=== PATIENT | male | born 1960 | race Two or more races ===

== ENCOUNTER 2022-02-11 10:12 | Outpatient (REF) | payer OTHER, SELFPAY ==
--- NOTE | ~2022-02-11 | XR_ITS ---
EXAMINATION: XR CHEST CLINICAL INFORMATION: Chest pain during with breathing COMPARISON: None TECHNIQUE: 2 views of the chest were obtained. FINDINGS: The lungs are well-expanded and clear. The heart size and pulmonary vascularity is normal. There is moderate spondylosis dorsal spine. XR/XR chest 2V IMPRESSION: Unremarkable chest examination.
== END 2022-02-11 10:13 | disposition home or self-care (01) ==
LOC: HO.XRAY 10:12
PROVIDERS: PCP Internal Medicine; Visit Provider Nurse Practitioner Family
DX: R07.1 Chest pain on breathing (principal)
CPT/HCPCS: 71046

== ENCOUNTER 2022-06-10 09:56 | Outpatient (REF) | payer OTHER, SELFPAY ==
--- NOTE | ~2022-06-10 | US_ITS ---
EXAMINATION: US VENOUS ULTRASOUND WITH DOPPLER LOWER EXTREMITY, RIGHT CLINICAL INFORMATION: Right leg pain COMPARISON: None available. TECHNIQUE: Ultrasound of the deep veins is performed from the hip to the calf with compression sonography and color and pulse Doppler assessment. Spectral analysis with color-flow imaging is performed. FINDINGS: There is normal venous compression and respiratory variation and augmented flow. The visualized common femoral vein, superficial femoral vein, profunda femoral vein, popliteal vein, and the trifurcation region shows no evidence of deep venous thrombosis. There is no significant popliteal fossa cyst. If the patient's symptoms persist, followup ultrasound in 5 days 7 days might be of value to exclude proximal propagation from a non-visualized calf vein. US/US venous duplex LE RT IMPRESSION: No DVT demonstrated in the right lower extremity.
--- NOTE | ~2022-06-10 | XR_ITS ---
EXAMINATION: XR chest 2V CLINICAL INFORMATION: Reason for Exam ACUTE COUGH COMPARISON: Chest radiograph 02/11/2022 TECHNIQUE: 2 views of the chest FINDINGS: Clear lungs. No pneumothorax or pleural effusion. Normal cardiomediastinal silhouette. XR/XR chest 2V Impression: * Clear lungs.
[2022-06-10 11:16] LABS: Rheumatoid Factor < 13.0 IU/mL (<15.0)
[2022-06-13 21:14] LABS: Lyme Abs Screen <0.90 index
[2022-06-17 11:19] LABS: Anti Nuclear Antibody Screen NEGATIVE (NEGATIVE)
== END 2022-06-10 09:57 | disposition home or self-care (01) ==
LOC: HO.US 09:56
PROVIDERS: Absent Provider Internal Medicine; PCP Internal Medicine; Visit Provider Emergency Medicine
DX: M79.651 Pain in right thigh (principal); R05.1 Acute cough; M25.50 Pain in unspecified joint
CPT/HCPCS: 36415; 71046; 86038; 86431; 86617; 86618; 93971

== ENCOUNTER 2022-09-01 15:34 | Outpatient (REF) | payer OTHER, SELFPAY ==
[2022-09-01 16:08] LABS: MANUAL DIFF FLAG NO
[2022-09-01 16:31] LABS: Basophils Absolute Auto 0.1 X10*3/uL (0.0-0.2); Basophils Percent Auto 0.7 % (0-2); Eosinophils Absolute Auto 0.2 X10*3/uL (0.0-0.4); Eosinophils Percent Auto 1.6 % (0-4); Hematocrit 43.7 % (42.0-52.0); Hemoglobin 14.9 g/dl (14.0-18.0); Imm Gran Abs Auto 0.05 X10*3/uL (0.00-0.03); Imm Gran Pct Auto 0.4 % (0.0-0.4); Lymphocytes Absolute Auto 2.7 X10*3/uL (1.2-4.9); Lymphocytes Percent Auto 23.4 % (20-40); Mean Corpuscular HGB Conc 34.1 g/dl (31.0-36.0); Mean Corpuscular Hemoglobin 30.5 pg (27.0-33.0); Mean Corpuscular Volume 89.5 fL (80.0-98.0); Mean Platelet Volume 10.4 fL (9.4-12.4); Monocytes Absolute Auto 0.9 X10*3/uL (0.1-1.2); Monocytes Percent Auto 7.6 % (2-11); Neutrophils Absolute Auto 7.6 x10*3/uL (2.0-8.3); Neutrophils Percent Auto 66.3 % (45-73); Platelet Count 268 X10*3/uL (160-400); Red Blood Count 4.88 X10*6/uL (4.60-5.80); Red Cell Distribution Width 11.9 % (11.0-16.0); White Blood Count 11.5 X10*3/uL (4.8-10.8)
[2022-09-01 17:07] LABS: Estimated Average Glucose 97 mg/dL
[2022-09-01 17:26] LABS: Alanine Aminotransferase 17 U/L (0-40); Albumin Level 4.2 g/dL (3.5-5.0); Alkaline Phosphatase 71 U/L (39-117); Anion Gap 16 (12-20); Aspartate Amino Transferase 22 U/L (5-37); Bilirubin Direct 0.3 mg/dL (0.0-0.5); Bilirubin Total 1.1 mg/dL (0.0-1.0); Blood Urea Nitrogen 15 mg/dL (9-16); Calcium 9.8 mg/dL (8.4-10.2); Carbon Dioxide 22 mmol/L (22-29); Chloride 104 mmol/L (96-108); Cholesterol 200 mg/dL; Estimated Glomerular Filt Rate > 60; Glucose Random 87 mg/dL (60-115); HDL Cholesterol 44 mg/dL; LDL Cholesterol Calculated 118 mg/dl; Potassium 3.9 mmol/L (3.3-5.1); Sodium 138 mmol/L (135-145); Total Protein 7.7 g/dL (6.5-8.0); Triglycerides 190 mg/dL
== END 2022-09-01 15:35 | disposition home or self-care (01) ==
LOC: HO.HHCL 15:34
PROVIDERS: Visit Provider Internal Medicine
DX: Z00.00 Encounter for general adult medical examination without abnormal findings (principal); Z20.2 Contact with and (suspected) exposure to infections with a predominantly sexual mode of transmission; E78.5 Hyperlipidemia, unspecified
CPT/HCPCS: 36415; 80048; 80061; 80076; 83036; 85025

== ENCOUNTER 2022-12-01 10:43 | Outpatient (REF) | payer OTHER, SELFPAY ==
[2022-12-01 12:07] LABS: Anion Gap 13 (12-20); Blood Urea Nitrogen 14 mg/dL (9-16); Calcium 9.6 mg/dL (8.4-10.2); Carbon Dioxide 25 mmol/L (22-29); Chloride 107 mmol/L (96-108); Estimated Glomerular Filt Rate > 60; Glucose Random 94 mg/dL (60-115); Sodium 141 mmol/L (135-145)
== END 2022-12-01 10:44 | disposition home or self-care (01) ==
LOC: HO.HHCL 10:43
PROVIDERS: Visit Provider Internal Medicine
DX: R22.1 Localized swelling, mass and lump, neck (principal)
CPT/HCPCS: 36415; 80048

== ENCOUNTER 2022-12-09 10:36 | Outpatient (REF) | payer OTHER, SELFPAY ==
--- NOTE | ~2022-12-09 | CT_ITS ---
EXAMINATION: CT SOFT TISSUE NECK WITH CONTRAST CLINICAL INFORMATION: Swelling, mass, lump COMPARISON: None available. TECHNIQUE: Following the administration of 60 mL of Omnipaque 350 intravenous contrast, helical imaging was performed in the axial plane with generation of coronal and sagittal reformatted images. This CT examination was performed using dose optimization techniques as appropriate, variously including the following: *Automated exposure control. *Adjustment of mA and/or kV according to patient size (this includes techniques or standardized protocols for targeted exams where dose is matched to indication/reason for exam; i.e. extremities or head). *Use of iterative reconstruction technique. DLP: 325.43 mGy-cm mGy-cm. FINDINGS: Nasopharynx/Skull Base: The fat planes at the skull base and the soft tissues of the nasopharynx are within normal limits. Prominent polypoid soft tissue in the left maxillary sinus. Additional trace scattered paranasal sinus mucosal thickening. The mastoid air cells are well-aerated. Suprahyoid Neck: Symmetric prominence of the bilateral lingual tonsils filling the vallecula. Suboptimal evaluation of the oral cavity secondary to streak artifact from dental amalgam. Left palatine tonsil with. The parotid and submandibular glands are within normal limits. Infrahyoid Neck: Suboptimal evaluation secondary to closed glottis. No definite exophytic mass/lesion within this constraint. Thyroid: The thyroid is unremarkable without identifiable nodules. Nodes: No significant cervical lymph nodes by CT size criteria. Lung Apices: The partially visualized lungs are clear. Vascular Structures:The vascular structures are normal in appearance. Osseous Structures: Multilevel degenerative changes of the cervical spine. Other Findings: Limited intracranial evaluation is within normal limits. CT/CT soft tissue neck w IV con IMPRESSION: No significant cervical lymphadenopathy or definite soft tissue mass is visualized. Please note that no region of interest is delineated/no clinical documentation is available to specify the location of palpable abnormality. If documentation becomes available, an addendum can be filed. Nonspecific prominence of the bilateral lingual tonsils filling the vallecula. Finding may represent tonsillar hypertrophy but is indeterminate. Direct visualization is recommended to exclude an underlying mass/lesion
[2022-12-09] MEDS: iohexoL 350 MG/ML 100 ML INFUS..BTL IV (11:57)
== END 2022-12-09 10:37 | disposition home or self-care (01) ==
LOC: HO.CT 10:36
PROVIDERS: PCP Internal Medicine; Visit Provider Internal Medicine
DX: R22.1 Localized swelling, mass and lump, neck (principal)
CPT/HCPCS: 70491; Q9967

== ENCOUNTER 2023-01-13 14:08 | Outpatient (REF) | payer OTHER, SELFPAY ==
[2023-01-13 15:34] LABS: Influenza A PCR NEGATIVE (Negative); Influenza B PCR NEGATIVE (Negative); Resp Syncy Virus RNA Qual PCR POSITIVE (Negative); SARS COV2 PCR INHOUSE NEGATIVE (Negative)
== END 2023-01-13 14:09 | disposition home or self-care (01) ==
LOC: HO.HHCLNP 14:08
PROVIDERS: Visit Provider Family Medicine
DX: Z11.52 Encounter for screening for COVID-19 (principal); J06.9 Acute upper respiratory infection, unspecified
CPT/HCPCS: 0241U

== ENCOUNTER 2023-05-01 10:21 | Outpatient (REF) | payer OTHER, MEDICAID, SELFPAY ==
--- NOTE | ~2023-05-01 | XR_ITS ---
EXAMINATION: XR SHOULDER, LEFT CLINICAL INFORMATION: Left shoulder pain. COMPARISON: None available. TECHNIQUE: AP external rotation, Grashey, scapular Y, and axillary views of the left shoulder. FINDINGS: No acute fracture or dislocation. Moderate acromioclavicular joint space narrowing with marginal osteophytes. No glenohumeral joint space narrowing. Tiny inferior glenohumeral marginal osteophytes. No osseous erosion. No abnormal soft tissue calcification. XR/XR shoulder LT min 2V IMPRESSION: Moderate acromioclavicular and minimal glenohumeral osteoarthritis.
== END 2023-05-01 10:22 | disposition home or self-care (01) ==
LOC: HO.HHCX 10:21
PROVIDERS: Visit Provider Emergency Medicine
DX: M25.512 Pain in left shoulder (principal)
CPT/HCPCS: 73030

== ENCOUNTER 2024-11-18 09:38 | Outpatient (REF) | payer OTHER, MEDICAID, SELFPAY ==
--- NOTE | ~2024-11-18 | XR_ITS ---
EXAMINATION: XR FOOT 3 OR MORE VIEWS LEFT HISTORY: left heel pain COMPARISON: There are no prior studies available for comparison. FINDINGS: Three views of the left foot are submitted. Osseous mineralization is normal. There is no fracture or dislocation. The joint spaces are preserved. The soft tissues are unremarkable. XR/XR foot LT min 3V IMPRESSION: Unremarkable examination of the left foot. Electronically signed by: Kamron Burt MD 11/19/2024 07:10 AM EDT
--- OUTSIDE RECORDS SUMMARY | 2024-11-18 09:00 | XMS_ITS | Encounter Summary ---
Author Organization [employer] Address [address] [place] [address] [address], [place] [address] Care Team Providers Care Agricultural Commodities Inspector Name Role Phone Love Brady MD Primary Care Provide r Reason for Referral * Consultation (Routine) - Pending Review Specialty Diagnoses / Procedures Referred By Contac t Referred To Contact Podiatry Diagnoses Achilles tendinosis of left ankle Pain of left heel Bridgette Winston MD [address] [place] [address] Phone: tel: fax: Referral ID Status Reason Start Date Expiration Date Visits Requested Visits Authorized [id number] Pending Review Specialty Services Required 11/18/2025 1 1 * Imaging (Routine) - Authorized Specialty Diagnoses / Procedures Referred By Contac t Referred To Contact Cardiology Diagnoses Leg pain, posterior, left Procedures GAYLE DUP EXT LOW UNILAT (DVT) LEFT Bridgette Winston MD [address] [place] [address] Phone: tel: fax: [address] Phone: tel: fax: Referral ID Status Reason Start Date Expiration Date Visits Requested Visits Authorized [id number] Authorized Perform Procedure 11/18/2025 1 1 Reason for Visit * Reason Comments Leg Pain CO left leg pain. Pt states it feels like his muscle is stretching or pulling like a rubber band Encounter Details Date Type Department Care Team (Late st Contact Info) Description 11/18/2024 9:00 AM EDT Office Visit [facility] [address] [place] [address] Bridgette Winston MD [address] [place] [address] Achilles tendinosis of left ankle (Primary Dx); Pain of left heel; Leg pain, posterior, left Social History Tobacco Use Types Packs/Day Years Used Date Smoking Tobacco: Former Cigarettes Passive Smoke Exposure: Past Smokeless Tobacco: Never Alcohol Use Standard Drinks/Week Comments Not Currently 0 (1 standard drink = 0.6 oz pur e alcohol) Alcohol Answer Date Recorded Frequency of Alcohol Consumption Not on file 08/30/2023 Average Number of Drinks Not on file 024 Frequency of Binge Drinking Not on file 08/07 Score 0 08/30/2023 Depression Answer Date Recorded Patient Health Questionnaire-9 Score 8 08/28/2024 Patient Health Questionnaire-9 Score 8 08/28/2024 Last PHQ-9: Questionnaire Data Not on file 0 08/28/2024 Housing Stability Answer Date Recorded What is your housing situation today? I have paola leiva 03/26/[address] you li ve. Do you have problems with any of the following? None of the above 03/26/2024 Food Insecurity Answer Date Recorded Within the past 12 months, y ou worried that your food would run out before you got money to buy more: Never True 03/26/2024 Within the past 12 months,th e food you bought just didn't last and you didn't have enough money to get more: Never True Transportation Answer Date Recorded In the past 12 months, has l ack of transportation kept you from medical appts, meetings, work or from getting things needed for daily living? No 03/26/2024 Utilities Answer Date Recorded In the past 12 months, has t he electric, gas, oil or water company threatened to shut off services in your home? No 03/26/2024 Depression Answer Date Recorded Patient Health Questionnaire-2 Score 1 08/28/2024 Internet Access Answer Date Recorded Internet Access Q1 Yes 03/26/2024 Internet Access Q2 Not on file 03/26/2024 Sex and Gender Information Value Date Recorded Sex Assigned at Male 12/06/2021 10:40 AM EDT Legal Sex Male 10:40 AM EDT Gender Identity Male 12/06/2021 10:40 AM EDT Sexual Orientation Straight 12/06/2021 10 :40 AM EDT documented as of this encounter Last Filed Vital Signs Vital Sign Reading Time Taken Comments Blood Pressure 126/82 11/18/2024 9:14 AM EDT Pulse 70 11/18/2024 9:14 AM EDT Temperature 36.6 C (97.8 F) 11/18/2024 9:14 AM EDT Respiratory Rate 16 11/18/2024 9:14 AM EDT Oxygen Saturation - - Inhaled Oxygen Concentration - - Weight 88.5 kg (195 lb 3.2 oz) 11/18/2024 9:14 A M EDT Height 170.2 cm (5' 7 ) 11/18/2024 9:14 AM EDT Body Mass Index 30.57 11/18/2024 9:14 AM EDT documented in this encounter Progress Notes * Bridgette Winston MD - 11/18/2024 9:00 AM EDT SUBJECTIVE: Patricio Urias is a 64 y.o. year old male who presents for [facility]/left foot pain. Denies recent illness, injury, or hospitalization. w Acute Concerns: Patient here with his complaining of persistent left heel and foot pain radiated up to the left leg for 2 weeks. Has been trying OTC Tylenol and heat packs with no improvement of the symptoms. He does not have significant edema, no history of recent trauma or accidents. He has history of recurrent PE in the past and and has been on Eliquis, he denies chest pain or shortness of breath. Social History Social History Narrative Not on file Problem List[1] Family History[2] Review of Systems Constitutional: Negative for fever. HENT: Negative for congestion, ear pain, rhinorrhea and sore throat. Eyes: Negative for pain and discharge. Respiratory: Negative for cough and shortness of breath. Cardiovascular: Negative for chest pain. Gastrointestinal: Negative for abdominal pain, constipation, diarrhea and nausea. Endocrine: Negative for polydipsia. Genitourinary: Negative for dysuria and frequency. Musculoskeletal: Positive for arthralgias and gait problem. Negative for back pain and neck pain. Neurological: Negative for dizziness, numbness and headaches. Psychiatric/Behavioral: Negative for agitation. OBJECTIVE: Vitals: 11/18/24 0914 BP: 126/82 Pulse: 70 Resp: 16 Temp: 97.8 ??F (36.6 ??C) Physical Exam Constitutional: Appearance: Normal appearance. HENT: Right Ear: Tympanic membrane and ear canal normal. Left Ear: Tympanic membrane and ear canal normal. Mouth/Throat: Mouth: Mucous membranes are moist. Pharynx: No oropharyngeal exudate or posterior oropharyngeal erythema. Eyes: Pupils: Pupils are equal, round, and reactive to light. Cardiovascular: Rate and Rhythm: Normal rate and regular rhythm. Pulses: Dorsalis pedis pulses are 2+ on the right side and 2+ on the left side. Posterior tibial pulses are 2+ on the right side and 2+ on the left side. Heart sounds: No murmur heard. Pulmonary: Breath sounds: Normal breath sounds. No wheezing. Abdominal: General: Bowel sounds are normal. Palpations: Abdomen is soft. Tenderness: There is no abdominal tenderness. Musculoskeletal: General: No tenderness. Normal range of motion. Cervical back: Normal range of motion. No tenderness. Right foot: No deformity. Left foot: No deformity. Feet: Right foot: Protective Sensation: 7 sites tested. 7 sites sensed. Skin integrity: No ulcer or fissure. Toenail Condition: Right toenails are normal. Left foot: Protective Sensation: 7 sites tested. 7 sites sensed. Skin integrity: No ulcer or fissure. Toenail Condition: Left toenails are normal. Comments: Tenderness palpation to left heel and calcaneal area. Painful extension of left plantar area. Tenderness to palpation around left Achilles tendon. Positive Homans sign Skin: General: Skin is warm. Neurological: General: No focal deficit present. Mental Status: He is alert and oriented to person, place, and time. Psychiatric: Mood and Affect: Mood normal. Problem List Items Addressed This Visit Achilles tendinosis of left ankle - Primary Rule out calcaneal spur, order x-rays. Advised regarding apply heat to affected area and use plantar pads to affected area for ambulation. I will order a surgical shoe to wear at home, refer to master electrician Relevant Orders XR Foot 3+ Views Left Referral to Podiatry Other Visit Diagnoses Pain of left heel Relevant Orders XR Foot 3+ Views Left Referral to Podiatry Leg pain, posterior, left ?Achilles tendinosis, however given history of unprovoked thrombotic event and positive Homans' sign, order a DVT US to rule out LLE DVT Relevant Orders GAYLE DUP EXT LOW UNILAT (DVT) LEFT Follow Up: Medications Ordered Prior to Encounter[3] [1] Patient Active Problem List Diagnosis Acute pulmonary embolism without acute cor pulmonale (CMS/HCC) ([facility]) Chronic low back pain Dyslipidemia Esophageal reflux Essential hypertension Left lumbar radiculopathy Mixed anxiety and depressive 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 Seasonal allergies Recurrent pulmonary embolism (CMS/HCC) ([facility]) Bronchitis Encounter for preventive health examination Colon cancer screening Neck pain Sialoadenitis, unspecified Localized swelling, mass and lump, neck Chronic left shoulder pain Anxiety Otitis of both ears Wheezing JABARI (obstructive sleep apnea) Coccygeal pain Achilles tendinosis of left ankle [2] No family history on file. [3] Current Outpatient Medications on File Prior to Visit Medication Sig Dispense Refill albuterol 108 (90 Base) MCG/ACT inhaler Inhale 2 puffs every 6 (six) hours if needed for wheezing or shortness of breath. 18 g 2 apixaban (Eliquis) 5 MG tablet Take 1 tablet (5 mg) by mouth 2 times daily. 60 tablet 3 Aspirin Low Dose 81 MG chewable tablet CHEW 1 TABLET BY MOUTH EVERY DAY 90 tablet 1 atorvastatin (Lipitor) 80 MG tablet TAKE 1 TABLET BY MOUTH EVERY DAY 90 tablet 1 baclofen (Lioresal) 10 MG tablet Take 1 tablet (10 mg) by mouth 3 times daily. 90 tablet 0 Blood Pressure kit 1 kit Once per day. 1 kit 0 fluticasone (Flonase) 50 MCG/ACT nasal spray Administer 2 sprays into each nostril if needed each day for rhinitis. Shake gently. Before first use, prime pump. After use, clean tip and replace cap. 16 g 2 hydroCHLOROthiazide 12.5 MG tablet TAKE 1 TABLET BY MOUTH EVERY DAY 90 tablet 1 hydrOXYzine pamoate (Vistaril) 25 MG capsule Take 1 capsule (25 mg) by mouth every 6 (six) hours ifneeded for anxiety. 30 capsule 0 loratadine (Claritin) 10 MG tablet TAKE 1 TABLET BY MOUTH EVERY DAY IN THE MORNING 90 tablet 1 meloxicam (Mobic) 15 MG tablet Take 1 tablet (15 mg) by mouth in the morning. 30 tablet 0 Multiple Vitamins-Minerals (MULTIVITAMIN ADULT EXTRA C PO) Daily, 0 Refills, Maintenance, 01/04/18 9:31:20 EST valsartan (Diovan) 160 MG tablet TAKE 1 TABLET BY MOUTH EVERY DAY IN THE MORNING 90 tablet 1 No current facility-administered medications on file prior to visit. documented in this encounter Miscellaneous Notes * Assessment & Plan Note - Bridgette Winston MD - 11/18/2024 9:38 AM EDT Associated Problem(s): Achilles tendinosis of left ankle Rule out calcaneal spur, order x-rays. Advised regarding apply heat to affected area and use plantar pads to affected area for ambulation. I will order a surgical shoe to wear at home, refer to master electrician documented in this encounter Plan of Treatment Upcoming Encounters Date Type Department Care Team (Late st Contact Info) Description 11/28/2024 9:00 AM EDT Office Visit [facility] [address] [place] [address] Love Brady MD [address] [place] [address] Scheduled Orders Name Type Priority Associated Diagnoses Orde r Schedule XR Foot 3+ Views Left Imaging Routine Pain of left heel Achilles tendinosis of left ankle Expected: 11/18/2024, Expires: 11/18/2025 Scheduled Referrals Name Type Priority Associated Diagnoses Orde r Schedule Referral to Podiatry Outpatient Referral Routine Achilles tendinosis of left ankle Pain of left heel Expected: 11/18/2024 (Approximate), Expires: 11/18/2025 documented as of this encounter Visit Diagnoses Diagnosis Achilles tendinosis of left ankle- Primary Pain of left heel Leg pain, posterior, left documented in this encounter Additional Health Concerns Assessment Noted Time PHQ-9 Depression Total Score: 8 08/29/19 25 9:15 AM EDT documented as of this encounter Care Teams Agricultural Commodities Inspector Relationship Specialty Start Date End Date Love Brady MD [address] [place] [address] PCP - General Family Medicine 06/30/21 documented as of this encounter
--- OUTSIDE RECORDS SUMMARY | 2024-11-18 09:46 | XMS_ITS | Encounter Summary ---
Author Organization [employer] Address [address] [place] [address] Care Team Providers Care Legal Internship Name Role Phone Love Brady MD Primary Care Provide r Reason for Visit * Reason Comments Med Refill Encounter Details Date Type Department Care Team (Late Contact Info) Description 10/20/2022 Refill [facility] [address] [place], [place] [phone] Gabrielle Farias FNP [address] [place] [address] Muscle spasm Social History Tobacco Use Types Packs/Day Years Used Date Smoking Tobacco: Former Cigarettes Smokeless Tobacco: Never Alcohol Use Standard Drinks/Week Comments Not Currently 0 (1 standard drink = 0.6 oz pur e alcohol) Depression Answer Date Recorded Patient Health Questionnaire-9 Score 3 02/11/2022 Depression Answer Date Recorded Patient Health Questionnaire-2 Score 0 02/11/2022 Sex and Gender Information Value Date Recorded Sex Assigned at Male 12/06/2021 10:40 AM EDT Legal Sex Male 10:40 AM EDT Gender Identity Male 12/06/2021 10:40 AM EDT Sexual Orientation Straight 12/06/2021 10 :40 AM EDT documented as of this encounter Plan of Treatment Upcoming Encounters Date Type Department Care Team (Late Contact Info) Description 11/28/2024 9:00 AM EDT Office Visit [facility] MED[facility]INE [address] [place], [place] [phone] Love Brady MD [address] [place], [place] [phone] documented as of this encounter Visit Diagnoses Diagnosis Muscle spasm Spasm of muscle documented in this encounter Additional Health Concerns Assessment Noted Time PHQ-9 Depression Total Score: 3 02/11/19 23 9:07 AM EST documented as of this encounter Care Teams Legal Internship Relationship Specialty Start Date End Date Love Brady MD [address] [place] [address] PCP - General Family Medicine 06/30/21 documented as of this encounter
--- OUTSIDE RECORDS SUMMARY | 2024-11-18 09:46 | XMS_ITS | Encounter Summary ---
Author Organization [employer] Address [address] [facility] 7t [place] [address] Care Team Providers Care Machine Shop Specialist Name Role Phone Love Brady MD Primary Care Provide r Reason for Visit * Reason Comments Med Change Request Encounter Details Date Type Department Care Team ([facility] st Contact Info) Description 05/23/2023 Refill [facility] [address] [place] [address] Jennifer Smart FNP Muscle spasm Social History Tobacco Use Types Packs/Day Years Used Date Smoking Tobacco: Former Cigarettes Passive Smoke Exposure: Current Smokeless Tobacco: Never Alcohol Use Standard Drinks/Week Comments Not Currently 0 (1 standard drink = 0.6 oz pur e alcohol) Depression Answer Date Recorded Patient Health Questionnaire-9 Score 0 03/01/2023 Patient Health Questionnaire-9 Score 0 03/01/2023 Last PHQ-9: Questionnaire Data Not on file 0 03/01/2023 Housing Stability Answer Date Recorded What is your housing situation today? I have paola leiva 03/01/[address] you li ve. Do you have problems with any of the following? None of the above 03/01/2023 Food Insecurity Answer Date Recorded Within the past 12 months, y ou worried that your food would run out before you got money to buy more: Never True 03/01/2023 Within the past 12 months,th e food you bought just didn't last and you didn't have enough money to get more: Never True Transportation Answer Date Recorded In the past 12 months, has l ack of transportation kept you from medical appts, meetings, work or from getting things needed for daily living? No 03/01/2023 Utilities Answer Date Recorded In the past 12 months, has t he electric, gas, oil or water company threatened to shut off services in your home? No 03/01/2023 Depression Answer Date Recorded Patient Health Questionnaire-2 Score 0 03/01/2023 Sex and Gender Information Value Date Recorded [...] 9:00 AM EDT Office Visit [facility] [address] [place] [address] Love Brady MD [address] [place] [address] documented as of this encounter Visit Diagnoses Diagnosis Muscle spasm Spasm of muscle documented in this encounter Additional Health Concerns Assessment Noted Time PHQ-9 Depression Total Score: 0 03/01/19 24 3:19 PM EST documented as of this encounter Care Teams Machine Shop Specialist Relationship Specialty Start Date End Date Love Brady MD [address] [place] [phone] PCP - General Family Medicine 06/30/21 documented as of this encounter
--- OUTSIDE RECORDS SUMMARY | 2024-11-18 09:46 | XMS_ITS | Encounter Summary ---
Author Organization [employer] Address [address] [facility] [address] [place] [address] Care Team Providers Care Grant Writer Name Role Phone Love Brady MD Primary Care Provide r Encounter Details Date Type Department Care Team (Late st Contact Info) Description 06/09/2023 Orders Only [facility] MEDICINE [address] [place], [place] [phone] Love Brady MD [address] [place] [address] Social History Tobacco Use Types Packs/Day Years [...] Office Visit [facility] MED[facility]INE [address] [place] [address] Love Brady MD [address] [place] [address] documented as of this encounter Visit Diagnoses Not on filedocumented in this encounter Additional Health Concerns Assessment Noted Time PHQ-9 Depression Total Score: 0 03/01/19 24 3:19 PM EST documented as of this encounter Care Teams Grant Writer Relationship Specialty Start Date End Date Love Brady MD [address] [place] [phone] PCP - General Family Medicine 06/30/21 documented as of this encounter
--- OUTSIDE RECORDS SUMMARY | 2024-11-18 09:46 | XMS_ITS | Clinical Summary ---
Author Organization [facility] Address [address] [place] [address] Phone Care Team Providers Care Gas Plant Repairer Name Role Phone Love Brady MD Primary Care Provide r Allergies Active Allergy Reactions Criticality Noted Date Comments Morphine Hives 03/12/2024 Medications apixaban (ELIQUIS) 5 mg tablet Take 1 tablet (5 mg total) by mouth 2 (two) times a day. Active Surgical History Surgery Date Site/Laterality Comments BACK SURGERY 1990 PROCEDURE: HISTORICAL BACK SURGERY; COMMENT: spinal fusion dr saini SHOULDER SURGERY Right PROCEDURE: HISTORICAL SHOULDER SURGERY; COMMENT: Dr. boateng COLONOSCOPY 2014 PROCEDURE: NE COLONOSCOPY STOMA W/RMVL IZAIAH POLYP/OTH LES SNARE; COMMENT: Colon polyps x 3 , diverticulosis COLONOSCOPY 10/31/2017 PROCEDURE: NE COLONOSCOPY STOMA W/RMVL IZAIAH POLYP/OTH LES SNARE; COMMENT: small adenoma; repeat in 5 yrs under propofol LIPOMA RESECTION 04/26/2021 Left PROCEDURE: SKIN TISSUE EXCISION(LIPOMA); COMMENT: left mid back - Dr. Babar Jackson LIPOMA RESECTION 06/01/2018 Left PROCEDURE: SKIN TISSUE EXCISION(LIPOMA); COMMENT: left flank - Dr. Babar Jackson Medical History Medical History Date Comments Esophageal reflux 10/03/2005 DX:Esophageal reflux Hematuria 07/04/2007 DX:Hematuria; CO MMENT: Evaluatedby dr bryan proctor Personal history of colonic polyps 03/05/2014 DX:Personal history of colonic polyps HTN (hypertension), benign 05/28/2020 DX:HT N (hypertension), benign DVT (deep venous thrombosis) ([facility] V24, [facility] V28) Family History Medical History Relation Name Comments No Known Problems Aunt Other: step brother Brother 1 Other: step brother Brother 2 Coronary artery disease Father No Known Problems Maternal Grandfather No Known Problems Maternal Grandmother Coronary artery disease Mother 3 ve ssel disease Other: pulmonary embo Mother Thyroid disease Mother No Known Problems Other No Known Problems Paternal Grandfather No Known Problems Paternal Grandmother No Known Problems Sister 1 No Known Problems Sister 2 Other: step sister Sister 3 Other: step sister Sister 4 No Known Problems Uncle Blindness Neg Hx Cataracts Neg Hx Glaucoma Neg Hx Macular degeneration Neg Hx Strabismus Neg Hx Relation Name Status Comments Aunt Brother 1 Alive Brother 2 Alive Father (Age 65) heart dise ase Maternal Grandfather Maternal Grandmother Mother Alive Other Paternal Grandfather Paternal Grandmother Sister 1 Alive Sister 2 Alive Sister 3 Alive Sister 4 Alive Uncle Social History Tobacco Use Types Packs/Day Years Used Date Smoking Tobacco: Former Cigarettes 1 3 0 02/07/1976 - 02/06/1979 Smokeless Tobacco: Former Alcohol Use Standard Drinks/Week Comments Yes 0 (1 standard drink = 0.6 oz pur e alcohol) Sex and Gender Information Value Date Recorded Sex Assigned at Male 03/12/2024 8:43 AM EST Legal Sex Male 10:10 PM EST Gender Identity Male 03/12/2024 8:43 AM EST Sexual Orientation Straight 03/12/2024 8: 43 AM EST Obstetrics History Last Filed Vital Signs Vital Sign Reading Time Taken Comments Blood Pressure 141/76 03/12/2024 1:50 PM EST Pulse 70 03/12/2024 1:50 PM EST Temperature 36.6 C (97.9 F) 03/12/2024 7:34 AM EST Respiratory Rate 16 03/12/2024 1:50 PM EST Oxygen Saturation 99% 03/12/2024 1:50 PM EST Inhaled Oxygen Concentration - - Weight 92.4 kg (203 lb 12.8 oz) 05/10/2021 8:50 AM EDT Height 170.2 cm (5' 7 ) 05/10/2021 8:50 AM EDT Body Mass Index 31.92 05/10/2021 8:50 AM EDT Plan of Treatment Health Maintenance Due Date Last Done Comments Colorectal Cancer Screening: Colonoscopy 1962 Pneumococcal Vaccine: 50+ Years (2 of 2 - PCV) 2012 03/12/2008 Hepatitis C Screening 01/15/2022 Medicare Annual Wellness Visit 01/15/2022 Social Influencers of Health Screening 01/15/2022 Depression Screening 02/07/2024 COVID-19 Vaccine ( - season) 2024 02/12/2022, 01/03/2021, 05/15/2020 Influenza Vaccine (#1) 2024 , 12/26/2022, 10/25/2021, Additional history exists Hypertension/CHF/CAD Annual BMP Blood Test 03/12/2025 03/12/2024 Cholesterol Screening (Lipid Panel) 09/02/2027 09/01/2022 DTaP,Tdap,and Td Vaccines (3 - Td or Tdap) 03/15/2029 03/15/2019, 09/05/2008 RSV Immunization Adult Patients (1 - 1-dose 75+ series) 2037 Zoster Vaccines Completed 05/14/2021, 12/05/2020 HIV Screening Completed 06/30/2021 HIB Vaccines Aged Out No longer eligi ble based on patient's age to complete this topic HPV Vaccines Aged Out No longer eligi ble based on patient's age to complete this topic Hepatitis A Vaccines Aged Out No long er eligible based on patient's age to complete this topic Hepatitis B Vaccines Aged Out No long er eligible based on patient's age to complete this topic IPV Vaccines Aged Out No longer eligi ble based on patient's age to complete this topic MMR Vaccines Aged Out No longer eligi ble based on patient's age to complete this topic Meningococcal ACWY Vaccine Aged Out N o longer eligible based on patient's age to complete this topic Meningococcal B Vaccine Aged Out No l onger eligible based on patient's age to complete this topic RSV Immunization Patients Under 20 months Aged Out No longer eligible based on patient's age to complete this topic Varicella Vaccines Aged Out No longer eligible based on patient's age to complete this topic Procedures Procedure Name Priority Date/Time Associated Diagnosis Comments BASIC METABOLIC PANEL STAT 03/12/2024 7:23 AM EST from Last 3 Months or Most Recently Relevant to Health Maintenance Results * Basic metabolic panel (03/12/2024 7:23 AM EST) Sodium 139 133 - 145 mmol/L LAB CHEMISTRY METHOD 03/12/2024 7:58 AM [facility] Potassium 3.6 3.5 - 5.5 mmol/L LAB CHEMISTRY METHOD 03/12/2024 7:58 AM [facility] Chloride 104 96 - 110 mmol/L LAB CHEMISTRY METHOD 03/12/2024 7:58 AM [facility] CO2 27 21 - 32 mmol/L LAB CHEMISTRY METHOD 03/12/2024 7:58 AM [facility] Anion Gap 8 3 - 11 LAB CHEMISTRY METHOD 03/12/2024 7:58 AM [facility] Glucose 100 70 - 100 mg/dL LAB CHEMISTRY METHOD 03/12/2024 7:58 AM [facility] BUN 18 5 - 25 mg/dL LAB CHEMISTRY METHOD 03/12/2024 7:58 AM [facility] Creatinine 0.88 0.70 - 1.30 mg/dL LAB CHEMISTRY METHOD 03/12/2024 7:58 AM [facility] eGFR 98 >=60 mL/min/1. 73m2 LAB CHEMISTRY METHOD 03/12/2024 7:58 AM [facility] Comment:Calculation based on the Chronic Kidney Disease Epidemiology Collaboration (CKD-EPI) equation refit without adjustment for race. BUN/Creatinine Ratio 20.5 LAB CHEMISTRY METHOD 03/12/2024 7:58 AM [facility] Calcium 9.2 8.5 - 10.5 mg/dL LAB CHEMISTRY METHOD 03/12/2024 7:58 AM [facility] Blood Venous blood specimen / Unknown Venipuncture / Unknown 03/12/2024 7:23 AM EST 03/12/2024 7:29 AM EST Hero Villavicencio DO LAB BLOOD ORDERABLES Final Result [facility] [address] [place] [address], [place] [phone] from Last 3 Months or Most Recently Relevant to Health Maintenance Insurance [facility] Member Subscriber Plan / Payer (Ef fective 2024-Present) Name:Patricio Urias Relation to Subscriber:Self Name:Patricio Urias Payer ID:[id number] Group ID:[id number] Type:Not on file Address: [address] [place] [phone] [employer] MEDIC[employer] Member Subscriber Plan / Payer (Ef fective 2024-Present) Name:Patricio Urias Relation to Subscriber:Self Name:Patricio Urias Payer ID:[id number] Group ID:Not on file Type:Not on file Address: [address] [place] [phone] Advance Directives Documents on File Type Date Recorded Patient Tank Officer Expl anation Health Care Decision (hx) 05/23/2020 AD SALAS DIRECTIVE Health Care Decision (hx) 05/23/2020 AD SALAS DIRECTIVE Health Care Decision (hx) 05/23/2020 AD SALAS DIRECTIVE Health Care Decision (hx) 05/23/2020 AD SALAS DIRECTIVE Health Care Decision (hx) 05/23/2020 AD SALAS DIRECTIVE Health Care Decision (hx) 05/23/2020 AD SALAS DIRECTIVE Health Care Decision (hx) 05/23/2020 AD SALAS DIRECTIVE Health Care Decision (hx) 05/23/2020 AD SALAS DIRECTIVE Health Care Decision (hx) 05/23/2020 AD SALAS DIRECTIVE Health Care Decision (hx) 02/19/2015 AD SALAS DIRECTIVE Health Care Decision (hx) 02/19/2015 AD SALAS DIRECTIVE Health Care Decision (hx) 02/19/2015 AD SALAS DIRECTIVE Health Care Decision (hx) 02/19/2015 AD SALAS DIRECTIVE Health Care Decision (hx) 02/19/2015 AD SALAS DIRECTIVE Health Care Decision (hx) 02/19/2015 AD SALAS DIRECTIVE Health Care Decision (hx) 02/19/2015 AD SALAS DIRECTIVE Health Care Decision (hx) 02/19/2015 AD SALAS DIRECTIVE Health Care Decision (hx) 02/19/2015 AD SALAS DIRECTIVE Health Care Decision (hx) 02/19/2015 AD SALAS DIRECTIVE Health Care Decision (hx) 02/19/2015 AD SALAS DIRECTIVE Health Care Decision (hx) 02/18/2015 AD SALAS DIRECTIVE Health Care Decision (hx) 02/18/2015 AD SALAS DIRECTIVE Health Care Decision (hx) 02/18/2015 AD SALAS DIRECTIVE Health Care Decision (hx) 02/18/2015 AD SALAS DIRECTIVE Health Care Decision (hx) 02/18/2015 AD SALAS DIRECTIVE Health Care Decision (hx) 02/18/2015 AD SALAS DIRECTIVE Health Care Decision (hx) 02/18/2015 AD SALAS DIRECTIVE Health Care Decision (hx) 02/18/2015 AD SALAS DIRECTIVE Health Care Decision (hx) 02/18/2015 AD SALAS DIRECTIVE Health Care Decision (hx) 02/18/2015 AD SALAS DIRECTIVE Health Care Decision (hx) 02/18/2015 AD SALAS DIRECTIVE Care Teams Gas Plant Repairer Relationship Specialty Start Date End Date Love Brady MD [address] [place] [phone] PCP - General 08/31/22
--- OUTSIDE RECORDS SUMMARY | 2024-11-18 09:46 | XMS_ITS | Encounter Summary ---
Author Organization [employer] Address [address] [facility] 7 [place] [address] Care Team Providers Care Silk Screen Printing Racker Name Role Phone Love Brady MD Primary Care Provide r Reason for Visit * Reason Comments Med Refill Encounter Details Date Type Department Care Team ([facility] st Contact Info) Description 07/08/2024 Refill [facility] MED[facility] [address] [place], [place] [phone] Love Brady MD [address] [place] [address] Essential hypertension Social History Tobacco Use Types Packs/Day Years [...] Answer Date Recorded Patient Health Questionnaire-9 Score 2 10/05/2023 Patient Health Questionnaire-9 Score 2 10/05/2023 Last PHQ-9: Questionnaire Data Not on file 0 10/05/2023 Housing Stability Answer Date Recorded What is [...] Date Recorded Patient Health Questionnaire-2 Score 0 10/05/2023 Internet Access Answer Date Recorded Internet Access [...] Description 11/28/2024 9:00 AM EDT Office Visit [facility] [address] [place], [place] [phone] Love Brady MD [address] [place] [address] documented as of this encounter Visit Diagnoses Diagnosis Essential hypertension Unspecified essential hypertension documented in this encounter Additional Health Concerns Assessment Noted Time PHQ-9 Depression Total Score: 2 10/05/19 24 3:40 PM EDT documented as of this encounter Care Teams Silk Screen Printing Racker Relationship Specialty Start Date End Date Love Brady MD [address] [place], [place] [phone] PCP - General Family Medicine 06/30/21 documented as of this encounter
--- OUTSIDE RECORDS SUMMARY | 2024-11-18 09:46 | XMS_ITS | Clinical Summary ---
Author Organization [employer] Address [address] [place] [address] 7[address] [place] [address] Care Team Providers Care Striker Out Name Role Phone Love Brady MD Primary Care Provide r Allergies Active Allergy Reactions Criticality Noted Date Comments Morphine Hives 06/24/2020 Medications Multiple Vitamins-Minerals (MULTIVITAMIN ADULT EXTRA C PO) Daily, 0 Refills, Maintenance, 01/04/18 9:31:20 EST 01/05/20 18 Active albuterol 108 (90 Base) MCG/ACT inhalerIndications:Br onchitis Inhale 2 puffs every 6 (six) hours if needed for wheezing or shortness of breath. 18 g 2 08/02/19 23 Active fluticasone (Flonase) 50 MCG/ACT nasal spray Administer 2 sprays into each nostril if needed each day for rhinitis. Shake gently. Before first use, prime pump. After use, clean tip and replace cap. 16 g 2 01/14/20 23 Active atorvastatin (Lipitor) 80 MG tablet TAKE 1 TABLET BY MOUTH EVERY DAY 90 tablet 1 03/28/19 24 Active meloxicam (Mobic) 15 MG tabletIndications:Spr ain of temporomandibular joint, initial encounter,Muscle spasm Take 1 tablet (15 mg) by mouth in the morning. 30 tablet 04/17/19 24 Active baclofen (Lioresal) 10 MG tabletIndications:Mus sherrie spasm Take 1 tablet (10 mg) by mouth 3 times daily. 90 tablet 05/01/19 24 Active Blood Pressure kit 1 kit Once per day. 1 kit 09/12/19 24 Active loratadine (Claritin) 10 MG tablet TAKE 1 TABLET BY MOUTH EVERY DAY IN THE MORNING 90 tablet 1 01/09/20 24 Active hydroCHLOROthiazide 12.5 MG tabletIndications:Ess ential hypertension TAKE 1 TABLET BY MOUTH EVERY DAY 90 tablet 1 04/05/19 25 Active hydrOXYzine pamoate (Vistaril) 25 MG capsuleIndications:In somnia, unspecified type Take 1 capsule (25 mg) by mouth every 6 (six) hours if needed for anxiety. 30 capsule 04/09/19 25 Active Aspirin Low Dose 81 MG chewable tabletIndications:Rec urrent pulmonary embolism (CMS/HCC) (HCC) CHEW 1 TABLET BY MOUTH EVERY DAY 90 tablet 1 06/11/19 25 Active apixaban (Eliquis) 5 MG tabletIndications:Rec urrent pulmonary embolism (CMS/HCC) (HCC) Take 1 tablet (5 mg) by mouth 2 times daily. 60 tablet 3 08/29/19 25 Active valsartan (Diovan) 160 MG tabletIndications:Ess ential hypertension TAKE 1 TABLET BY MOUTH EVERY DAY IN THE MORNING 90 tablet 1 09/25/19 25 Active Active Problems Problem Noted Date Diagnosed Date Achilles tendinosis of left ankle 11/18/2024 Assessment & Plan (11/18/2024 9:38 AM EDT): Rule out calcaneal spur, order x-rays. Advised regarding apply heat to affected area and use plantar pads to affected area for ambulation. I will order a surgical shoe to wear at home, refer to application counselor JABARI (obstructive sleep apnea) 08/28/2024 Assessment & Plan (08/28/2024 10:26 AM EDT): I will wait for results of sleep study titration to order his CPAP machine and advised to follow-up with sleep medicine Coccygeal pain 08/28/2024 Assessment & Plan (08/28/2024 10:26 AM EDT): I offered today for him physical therapy, patient will discuss this first with pain management and decide Otitis of both ears 01/08/2024 Wheezing 01/08/2024 Anxiety 10/05/2023 Assessment & Plan (10/05/2023 3:38 PM EDT): Stable now C/w PRN hydroxyzine Chronic left shoulder pain 05/31/2023 Assessment & Plan (05/31/2023 2:04 PM EDT): C/w acetaminophen PRN, report back if pain gets worse again Sialoadenitis, unspecified 12/01/2022 Assessment & Plan (12/01/2022 10:55 AM EDT): I recommended gentle massages on affected area, rinsing mouth with warm water and salt, sucking on lemon candy or vit-c candy to increase flow of saliva Take meloxicam daily for 2-3 weeks I will order CT scan of the neck to r/o abscess Localized swelling, mass and lump, neck 12/02/19 Assessment & Plan (12/01/2022 11:04 AM EDT): Seems to be related to sialadenitis, r/o neoplasm vs neck abscess w/ ordered CT scan of the neck soft tissue Encounter for preventive health examination 08/07 Assessment & Plan (10/05/2023 3:38 PM EDT): See HPI Assessment & Plan (09/01/2022 4:30 PM EDT): Please refer for HPI Colon cancer screening 09/01/2022 Neck pain 09/01/2022 Bronchitis 08/01/2022 Assessment & Plan (08/01/2022 9:10 AM EDT): Pt with 5 days of respiratory symptoms ,fever,chills, sore throat , now afebrile but with ongoing fatigue, greenish cough and few wheezing on exam ,denies SOB nor CP. Here flu,covid 19 and strep throat are negative -hydration -tylenol prn -amoxicillin BID x 7 days -continue mucinex that has at home -start albuterol prn-reports used it in the past but run out -alarm signs and symptoms discussed w pt in case needs to return to clinic if symptoms not improving in next 72 hours -may need CXR Seasonal allergies 07/14/2022 Assessment & Plan (07/14/2022 9:36 AM EDT): Cough is likely due to allergies tral of cetrizine today Recurrent pulmonary embolism (CMS/HCC) Assessment & Plan (07/14/2022 9:35 AM EDT): Patient will be on mcc anticoagulation with apixaban BID, prescription renewed today Chronic low back pain 01/21/2022 Dyslipidemia 01/21/2022 Essential hypertension 01/21/2022 Assessment & Plan (08/28/2024 10:26 AM EDT): Advised: - Aerobic exercise to reduce BP. Initial goal of 30 min walk 3-5x/week. Increase as tolerated. - low-sodium diet (goal: <2g/day) and heart healthy diet such as DASH to reduce BP and prevent ASCVD. - Home BP monitoring 1-2 x day with goal of <140/90. - Seek immediate medical attention for chest pain, palpitations, SOB, syncope, or sudden changes in mental status. - Do not change or discontinue current prescriptions without first consulting health care provider Assessment & Plan (10/05/2023 3:38 PM EDT): Patient brought with him blood pressure log all his reading are at goal C/w same medications and intervention Assessment & Plan (08/30/2023 4:28 PM EDT): C/w same medication regimen low Na diet , I advise weight reduction, I advise to log his BP and bring it for next appointment Assessment & Plan (05/31/2023 2:00 PM EDT): Maintenance: BMP: up to date Lipid Panel: up to date ASCVD Risk: Calculate pending updated labs EKG: Obtain baseline at f/u - Aerobic exercise to reduce BP. Initial goal of 30 min walk 3-5x/week. Increase as tolerated. - low-sodium diet (goal: <2g/day) and heart healthy diet such as DASH to reduce BP and prevent ASCVD. - Home BP monitoring 1-2 x day with goal of <140/90. - Seek immediate medical attention for chest pain, palpitations, SOB, syncope, or sudden changes in mental status. - Do not change or discontinue current prescriptions without first consulting health care provider Assessment & Plan (03/01/2023 4:18 PM EST): Maintenance: BMP: up to date Lipid Panel: up to date ASCVD Risk:on atorvastatin 80mg and sas 81mg daily - Aerobic exercise to reduce BP. Initial goal of 30 min walk 3-5x/week. Increase as tolerated. - low-sodium diet (goal: <2g/day) and heart healthy diet such as DASH to reduce BP and prevent ASCVD. - Home BP monitoring 1-2 x day with goal of <140/90. - Seek immediate medical attention for chest pain, palpitations, SOB, syncope, or sudden changes in mental status. - Do not change or discontinue current prescriptions without first consulting health care provider Assessment & Plan (11/24/2022 9:50 AM EDT): - Aerobic exercise to reduce BP. Initial goal of 30 min walk 3-5x/week. Increase as tolerated. - low-sodium diet (goal: <2g/day) and heart healthy diet such as DASH to reduce BP and prevent ASCVD. - Home BP monitoring 1-2 x day with goal of <140/90. - Seek immediate medical attention for chest pain, palpitations, SOB, syncope, or sudden changes in mental status. - Do not change or discontinue current prescriptions without first consulting health care provider Assessment & Plan (09/01/2022 4:29 PM EDT): Maintenance: BMP: ordered today Lipid Panel: ordered today ASCVD Risk: patient already on max dose statin EKG: Obtain baseline at f/u - Aerobic exercise to reduce BP. Initial goal of 30 min walk 3-5x/week. Increase as tolerated. - low-sodium diet (goal: <2g/day) and heart healthy diet such as DASH to reduce BP and prevent ASCVD. - Home BP monitoring 1-2 x day with goal of <140/90. - Seek immediate medical attention for chest pain, palpitations, SOB, syncope, or sudden changes in mental status. - Do not change or discontinue current prescriptions without first consulting health care provider Assessment & Plan (07/14/2022 9:35 AM EDT): Maintenance: BMP: ordered today Lipid Panel: ordered today ASCVD Risk: Patient is already on high dose statin - Aerobic exercise to reduce BP. Initial goal of 30 min walk 3-5x/week. Increase as tolerated. - low-sodium diet (goal: <2g/day) and heart healthy diet such as DASH to reduce BP and prevent ASCVD. - Home BP monitoring 1-2 x day with goal of <140/90. - Seek immediate medical attention for chest pain, palpitations, SOB, syncope, or sudden changes in mental status. - Do not change or discontinue current prescriptions without first consulting health care provider Left lumbar radiculopathy 01/21/2022 Mixed anxiety and depressive disorder 01/21/2022 Failed back syndrome of lumbar spine 01/21/2022 Assessment & Plan (08/30/2023 4:28 PM EDT): Continue to follow up with pain management Assessment & Plan (05/31/2023 2:04 PM EDT): Patient will call pain clinic for his appointment, if he needs a referral he will report back Acute pulmonary embolism wit hout acute cor pulmonale ([facility]/HCC) 06/29/2020 Esophageal reflux 10/03/2005 Resolved Problems Problem Noted Date Diagnosed Date Resolved Date Blurred vision 10/05/2023 01/19/2024 Encounters Date Type Department Care Team Description 11/18/2024 9:00 AM EDT Office Visit [facility] [address] [place] [phone] Bridgette Winston MD Achilles tendinosis of left ankle (Primary Dx); Pain of left heel; Leg pain, posterior, left 11/18/2024 Travel 09/23/2024 Refill [facility] [address] [place] [phone] Love Brady MD Essential hypertension 09/11/2024 Telephone [facility] [address] [place] [address] Love Brady MD OCT RECALL 08/28/2024 9:15 AM EDT Office Visit [facility] [address] [place] [address] Love Brady MD Coccygeal pain (Primary Dx); Essential hypertension; JABARI (obstructive sleep apnea); Recurrent pulmonary embolism (CMS/HCC); Encounter for immunization; Dietary counseling; Exercise counseling; Class 1 obesity due to excess calories with serious comorbidity and body mass index (BMI) of 30.0 to 30.9 in adult 08/28/2024 Travel 08/26/2024 Telephone [facility] [address] [place] [address] Love Brady MD Chart Prep 08/21/2024 Travel from Last 3 Months Immunizations Immunization Administration Dates Next Due INFLUENZA INJECTABLE QUADRIV ALANT CCIIV4 MDCK Multi-dose vial 10/12/2017 Influenza Injectable Quadriv alant Preservative Free IIV4 MDCK 10/25/2021,12/05/2020,03/15/2019 Influenza injectable quadriv alent preservative free 12/26/2022,11/21/2019 Influenza, IIV3, injectable 02/04/2016, 5,03/12/2008 Influenza, seasonal, injecta ble, preservative free 01/08/2024 Sandra SARS-CoV-2 Vaccination 05/15/2020 Pfizer Covid-19 Vaccine 12+ 01/03/2021 Pneumococcal Conjugate PCV 20 08/28/2024 Pneumococcal Polysaccharide PPSV23 03/12/2008 TD (adult), 2 Lf tetanus tox oid, preservative free, adsorbed 03/15/2019 Tdap 09/05/2008 Zoster, Recombinant 05/14/2021,12/05/2020 Social History Tobacco Use Types Packs/Day Years Used Date Smoking Tobacco: Former Cigarettes Passive Smoke Exposure: Past Smokeless Tobacco: Never Tobacco Cessation:Counseling Given: Not Answered Alcohol Use Standard Drinks/Week Comments Not Currently [...] Orientation Straight 12/06/2021 10 :40 AM EDT Last Filed Vital Signs Vital Sign Reading Time Taken Comments Blood Pressure 126/82 11/18/2024 9:14 AM EDT Pulse 70 11/18/2024 9:14 AM EDT Temperature 36.6 C (97.8 F) 11/18/2024 9:14 AM EDT Respiratory Rate 16 11/18/2024 9:14 AM EDT Oxygen Saturation 96% 04/08/2024 9:37 AM EST Inhaled Oxygen Concentration - - Weight 88.5 kg (195 lb 3.2 oz) 11/18/2024 9:14 A M EDT Height 170.2 cm (5' 7 ) 11/18/2024 9:14 AM EDT Body Mass Index 30.57 11/18/2024 9:14 AM EDT Plan of Treatment Upcoming Encounters Date Type Department Care Team ([facility] st Contact Info) Description 11/28/2024 9:00 AM EDT Office Visit [facility] [address] [place] [address] Love Brady MD [address] [place] [address] Health Maintenance Due Date Last Done Comments CT Colonography 1962 FIT DNA/Cologuard 1962 FIT 1962 FOBT 1962 Sigmoidoscopy 1962 Alcohol/Substance Use Screening 1974 RSV Patients and Patients Aged 60 years or older (1 - Risk 60-74 years 1-dose series) 2022 COVID-19 Vaccine ( season) 2024 02/12/2022, 01/03/2021, 05/15/2020 Influenza Vaccine (#1) 2024 , 12/26/2022, 10/25/2021, Additional history exists SDOH Screening 03/26/2025 03/26/2024 Tobacco Screening 05/09/2025 05/09/2024 Depression Screening 08/28/2025 08/28/2024, 08/29/19 Disability Screening 08/28/2025 08/28/2024 Lipid Panel 09/02/2027 09/01/2022, 06/30/2021 Colonoscopy 10/29/2028 10/30/2023 Colorectal Cancer Screening 10/29/2028 DTaP/Tdap/Td Vaccines (3 - Td or Tdap) 03/15/2029 03/15/2019, 09/05/2008 Zoster Vaccines Completed 05/14/2021, 12/05/2020 HIV Screening Completed 06/30/2021 Hepatitis C Screening Completed 06/30/2021 Pneumococcal Vaccine: 50+ Years Completed 08/28/2024, 03/12/2008 HIB Vaccines Aged Out No longer eligi [...] patient's age to complete this topic Meningococcal Vaccine Aged Out No luis tess eligible based on patient's age to complete this topic RSV under 20 months Aged Out No longe r eligible based on patient's age to complete this topic Rotavirus Vaccines Aged Out No longer eligible based on patient's age to complete this topic Procedures Procedure Name Priority Date/Time Associated Diagnosis Comments COLONOSCOPY Routine 10/30/2023 5:29 PM EDT LIPID PANEL, STANDARD Routine 09/01/2022 3:37 PM EDT Encounter for preventive health examination ZZZ HISTORICAL HEPATITIS C AB W/REFL TO HCV RNA, QN, PCR Routine 06/30/2021 10:10 AM EDT HIV 1/2 ANTIGEN/ANTIBODY, FOURTH GENERATION W/RFL Routine 06/30/2021 10:10 AM EDT from Last 3 Months or Most Recently Relevant to Health Maintenance Results * Colonoscopy (10/30/2023 5:29 PM EDT) us Historical Provider MD HEALTH MAINTENANCE Final Result * Lipid Panel, Standard (09/01/2022 3:37 PM EDT) Triglycerides 190 mg/dL [facility] Comment:Desirable Triglyceri de: less than 150 mg/dLBorderline High Triglyceride 150-199 mg/dLHigh Triglyceride: 200-499 mg/dLVery High Triglyceride: greater than or equal to 5OO mg/dL Cholesterol 200 mg/dL [facility] Comment:Desirable Cholestero l: less than 200 mg/dLBorderline High Cholesterol: 200-239 mg/dLHigh Cholesterol: greater than 239 mg/dL LDL Cholesterol Calculated 118 mg/dl [facility] Comment:Desirable LDL: less than 100 mg/dLNear Optimal/Above Optimal LDL: 110- 129 mg/dLBorderline High LDL: 130-159 mg/dLHigh LDL: 160-189 mg/dLVery High LDL: greater than or equal to 190 mg/dL HDL Cholesterol 44 mg/dL [facility] Comment:Desirable HDL: great er than 40 mg/dL Note: This HDL assay may give artificially low results in patients with liver disease. Blood Venous blood specimen / Unknown 09/01/2022 3:37 PM EDT 09/01/2022 4:05 PM EDT Love Cordero MD LAB BLOOD ORDERABLES Final Result [facility] [address] [place] [phone] * HEPATITIS C AB W/REFL TO HCV RNA, QN, PCR (06/30/2021 10:10 AM EDT) HEPATITIS C ANTIBODY NON-REACT VIC NON-REACT VIC [facility] INDEX <0.02 <1.00 [facility] Comment: HCV antibody was non-reactive. There is no laboratory evidence of HCV infection. In most cases, no further action is required. However, if recent HCV exposure is suspected, a test for HCV RNA (test code 05784) is suggested. For additional information please refer to http://education.[employer]/faq/HYE98h6 (This link is being provided for informational/ educational purposes only.) 06/30/2021 10:1 0 AM EDT us Love Cordero MD HISTORICAL/NON ORDERA BLE LABS Final Result [facility] [address] * HIV 1/2 ANTIGEN/ANTIBODY,FOURTH GENERATION W/RFL (06/30/2021 10:10 AM EDT) HIV-1/2 ANTIGEN AND ANTIBODIES, 4TH GENERATION W/ REFLEX NON-REACT VIC NON-REACT VIC [facility] Comment: HIV-1 antigen and HIV-1/HIV-2 antibodies were not detected. There is no laboratory evidence of HIV infection. PLEASE NOTE: This information has been disclosed to you from records whose confidentiality may be protected by state law. If your state requires such protection, then the state law prohibits you from making any further disclosure of the information without the specific written consent of the person to whom it pertains, or as otherwise permitted by law. A general authorization for the release of medical or other information is NOT sufficient for this purpose. For additional information please refer to http://education.[employer]/faq/MZV877 (This link is being provided for informational/ educational purposes only.) The performance of this assay has not been clinically validated in patients less than 2 years old. 06/30/2021 10:1 0 AM EDT Love Cordero MD LAB BLOOD ORDERABLES Final Result Performing Organization Address City/State/[facility] Co de Phone Number [facility] [address] from Last 3 Months or Most Recently Relevant to Health Maintenance [place] [address] [place] [address] < 65 RICHA BAHENA [phone] Care Teams Striker Out Relationship Specialty Start Date End Date Love Brady MD [address] [place] [phone] PCP - General Family Medicine 06/30/21
--- OUTSIDE RECORDS SUMMARY | 2024-11-18 09:46 | XMS_ITS | Clinical Summary ---
Author Organization [employer] [facility] Address [address] [place] [address] Care Team Providers Care Cook Jelly Name Role Phone Nash Elena PA-C Primary Care Provider Allergies Active Allergy Reactions Criticality Noted Date Comments Morphine 06/24/2020 Medications Medication Sig Dispensed Refills Start Date End Date Status apixaban (ELIQUIS) 5 MG TABS tablet Take 5 mg by mouth every 12 (twelve) hours. 0 Active aspirin EC 81 MG tablet Take 81 mg by mouth daily. 0 Active albuterol 108 (90 Base) MCG/ACT inhaler Inhale 2 puffs into the lungs every 6 (six) hours as needed for wheezing. 0 Active fluticasone (FLONASE) 50 MCG/ACT nasal spray spray/apply 1 spray in each nostril daily. 0 Active Active Problems Problem Noted Date Diagnosed Date Acute pulmonary embolism without acute cor pulmo nale 06/29/2020 HTN (hypertension), benign 05/28/2020 Class 1 obesity due to exces s calories without serious comorbidity with body mass index (BMI) of 30.0 to 30.9 in adult 05/08/2017 Esophageal reflux 10/03/2005 Family History Medical History Relation Name Comments Hypertension Father Relation Name Status Comments Father Social History Tobacco Use Types Packs/Day Years Used Date Smoking Tobacco: Former Smokeless Tobacco: Never Alcohol Use Standard Drinks/Week Comments Yes 0 (1 standard drink = 0.6 oz pur e alcohol) socially Sex and Gender Information Value Date Recorded Sex Assigned at Not on file Gender Identity Not on file Sexual Orientation Not on file Job Start Date Occupation Industry Not on file Not on file Not on file Last Filed Vital Signs Vital Sign Reading Time Taken Comments Blood Pressure 178/81 11/30/2020 10:01 AM EDT Pulse 90 11/30/2020 10:01 AM EDT Temperature 36.7 C (98 F) 11/30/2020 10:01 AM EDT Respiratory Rate - - Oxygen Saturation 97% 11/30/2020 10:01 AM EDT Inhaled Oxygen Concentration - - Weight 89.4 kg (197 lb) 11/30/2020 10:01 AM EDT Height 170.2 cm (5' 7 ) 11/30/2020 10:01 AM EDT Body Mass Index 30.85 11/30/2020 10:01 AM EDT Plan of Treatment Health Maintenance Due Date Last Done Comments Hepatitis C Screening 1962 Depression Screening 1974 Preventative Health Evaluation 1980 Colon Cancer Screening (Colonoscopy) 10/08/2007 Shingrix-Zoster Vaccine (1 of 2) 2012 DTap / Tdap / Td (2 - Td or Tdap) 09/05/2018 09/05/2008 COVID-19 Vaccine (2 - season) 2024 05/15/2020 Influenza Vaccine (#1) 2024 0, 10/12/2017, 02/04/2016, Additional history exists RSV Adult > 60+ Yrs or (1 - 1-dose 75+ series) 2037 Hepatitis B Vaccines Aged Out No long er eligible based on patient's age to complete this topic Pneumococcal Vaccine Aged Out No long er eligible based on patient's age to complete this topic RSV Ped < 20 months Aged Out No longe r eligible based on patient's age to complete this topic Care Teams Cook Jelly Relationship Specialty Start Date End Date Nash Elena, YAMINI PCP - General Medical Services 05/25/20
--- OUTSIDE RECORDS SUMMARY | 2024-11-18 09:46 | XMS_ITS | Encounter Summary ---
Author Organization [employer] Address [address] [facility] [address] [place] [address] Care Team Providers Care Jacquard Loom Carpet Weaver Name Role Phone Love Brady MD Primary Care Provide r Encounter Details Date Type Department Care Team (Latest Contact Info) Description 11/18/2024 Travel Social History Tobacco Use Types Packs/Day Years [...] Description 11/28/2024 9:00 AM EDT Office Visit [facility] [address] [place] [phone] Love Brady MD [address] [place] [phone] documented as of this encounter Visit Diagnoses Not on filedocumented in this encounter Additional Health Concerns Assessment Noted Time PHQ-9 Depression Total Score: 8 08/29/19 25 9:15 AM EDT documented as of this encounter Care Teams Jacquard Loom Carpet Weaver Relationship Specialty Start Date End Date Love Brady MD [address] [place] [phone] PCP - General Family Medicine 06/30/21 documented as of this encounter
--- OUTSIDE RECORDS SUMMARY | 2024-11-18 09:46 | XMS_ITS | Encounter Summary ---
Author Organization [employer] Address [address] [place] [address] [address], [place] [address] Care Team Providers Care Corrugated Box Machine Operator Name Role Phone Love Brady MD Primary Care Provide r Reason for Visit * Reason Comments Med Refill Encounter Details Date Type Department Care Team (Late Contact Info) Description 09/14/2022 Refill [facility] [address] [place] [address] [phone] Bridgette Winsotn MD [address] [place], [place] [phone] Essential hypertension Social History Tobacco Use Types [...] Description 11/28/2024 9:00 AM EDT Office Visit [facility] [address] [place], [place] [phone] Love Brady MD [address] [place], [place] [phone] documented as of this encounter Visit Diagnoses Diagnosis Essential hypertension Unspecified essential hypertension documented in this encounter Additional Health Concerns Assessment Noted Time PHQ-9 Depression Total Score: 3 02/11/19 23 9:07 AM EST documented as of this encounter Care Teams Corrugated Box Machine Operator Relationship Specialty Start Date End Date Love Brady MD [address] [place] [phone] PCP - General Family Medicine 06/30/21 documented as of this encounter
--- OUTSIDE RECORDS SUMMARY | 2024-11-18 09:46 | XMS_ITS | Encounter Summary ---
Author Organization [employer] Address 75 [facility] 7t [place] [address] Care Team Providers Care Rug Shampooer Name Role Phone Love Brady MD Primary Care Provide r Encounter Details Date Type Department Care Team (Late st Contact Info) Description 06/06/2024 Orders Only [facility] [address] [place] [address] Provider, MD Doreen Social History Tobacco Use Types Packs/Day Years [...] Description 11/28/2024 9:00 AM EDT Office Visit [facility] [address] [place] [address] Love Brady MD [address] [place] [address] documented as of this encounter Procedures Procedure Name Priority Date/Time Associated Diagnosis Comments HM COLONOSCOPY Routine 10/30/2023 5:29 PM EDT documented in this encounter Results * Hm Colonoscopy (10/30/2023 5:29 PM EDT) Historical Provider HEALTH MAINTENANCE Final Result documented in this encounter Visit Diagnoses Not on filedocumented in this encounter Additional Health Concerns Assessment Noted Time PHQ-9 Depression Total Score: 2 10/05/19 24 3:40 PM EDT documented as of this encounter Care Teams Rug Shampooer Relationship Specialty Start Date End Date Love Brady MD [address] [place] [phone] PCP - General Family Medicine 06/30/21 documented as of this encounter
== END 2024-11-18 09:39 | disposition home or self-care (01) ==
LOC: HO.HHCX 09:38
PROVIDERS: Visit Provider Internal Medicine
DX: M79.672 Pain in left foot (principal); M67.874 Other specified disorders of tendon, left ankle and foot
CPT/HCPCS: 73630

== ENCOUNTER → 2024-11-18 09:39 | Outpatient (BNV) | payer OTHER, MEDICAID, SELFPAY | PROVIDERS: Visit Provider Radiology Diagnostic Radiology | DX: M79.672 Pain in left foot (principal) | CPT/HCPCS: 73630 ==

== ENCOUNTER 2024-11-21 15:56 | Outpatient (REF) | payer OTHER, MEDICAID, SELFPAY ==
--- OUTSIDE RECORDS SUMMARY | 2024-11-18 09:00 | XMS_ITS | Encounter Summary ---
Author Organization [employer] Address [address] [place] [address] [address] [address] Care Team Providers Care Metal Framer Name Role Phone Love Brady MD Primary Care Provide r Reason for Referral * Consultation (Routine) - Authorized Specialty Diagnoses / Procedures Referred By Massimo t Referred To Contact Podiatry Diagnoses Achilles tendinosis of left ankle Pain of left heel Bridgette Winston MD [address] [place] [address] Phone: tel: fax: Irvin Joshi DPM [address] [facility] [address] [place] [address] Phone: tel: fax: Referral ID Status Reason Start Date Expiration Date Visits Requested Visits Authorized [id number] Authorized Specialty Services Required 11/18/2025 1 1 * Imaging (Routine) - Authorized Specialty Diagnoses / Procedures Referred By Contac t Referred To Contact Cardiology Diagnoses Leg pain, posterior, left Procedures GAYLE DUP EXT LOW UNILAT (DVT) LEFT Bridgette Winston MD [address] [place] [address] Phone: tel: fax: [facility] [address] [place] [address] Phone: tel: fax: Referral ID Status Reason Start Date Expiration Date Visits Requested Visits Authorized [id number] Authorized Perform Procedure 11/18/2025 1 1 Reason for Visit * Reason Comments Leg Pain CO left leg pain. Pt states it feels like his muscle is stretching or pulling like a rubber band Encounter Details Date Type Department Care Team (Late st Contact Info) Description 11/18/2024 9:00 AM EDT Office Visit [facility] [address] [place] [address] Bridgette Winston MD [address] [place] [address] Achilles tendinosis of left ankle (Primary Dx); [...] shoe to wear at home, refer to referral manager Relevant Orders XR Foot 3+ Views Left [...] without acute cor pulmonale (CMS/HCC) ([facility]) Chronic low back pain Dyslipidemia Esophageal reflux Essential hypertension Left lumbar radiculopathy Mixed anxiety and depressive 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 Seasonal allergies Recurrent pulmonary embolism (CMS/HCC) ([facility]) Bronchitis Encounter for preventive health examination Colon [...] shoe to wear at home, refer to referral manager documented in this encounter Plan of Treatment Upcoming Encounters Date Type Department Care Team (Late st Contact Info) Description 11/28/2024 9:00 AM EDT Office Visit [facility] [address] [place] [address] Love Brady MD [address] [place] [address] Scheduled Referrals Name Type Priority Associated Diagnoses Orde r Schedule Referral to Podiatry Outpatient Referral Routine Achilles tendinosis of left ankle Pain of left heel Expected: 11/18/2024 (Approximate), Expires: 11/18/2025 documented as of this encounter Procedures Procedure Name Priority Date/Time Associated Diagnosis Comments XR FOOT 3+ VIEWS LEFT Routine 11/18/2024 9:45 AM EDT Pain of left heel Achilles tendinosis of left ankle documented in this encounter Results * XR Foot 3+ Views Left (11/18/2024 9:45 AM EDT) Anatomical Region Laterality Modality Lower Extremities, Foot Left [facility] 11/18/2024 9:45 AM EDT Narrative 11/19/2024 7:13 AM EDT [address] [address] XRay Report Signed Patient: Patricio Urias MR#: [id number] : 1960 Acct:[id number] Age/Sex: 64 / M ADM Date: 11/18/24 Loc: .[facility]HCX Attending Dr: Bridgette Winston MD Ordering Physician: Bridgette Winston MD Date of Service: 11/18/24 Procedure(s): XR foot LT min 3V Accession Number(s): [id number] cc: Bridgette Winston MD Reason for Exam: left heel pain EXAMINATION: XR FOOT 3 OR MORE VIEWS LEFT HISTORY: left heel pain COMPARISON: There are no prior studies available for comparison. FINDINGS: Three views of the left foot are submitted. Osseous mineralization is normal. There is no fracture or dislocation. The joint spaces are preserved. The soft tissues are unremarkable. XR/XR foot LT min 3V IMPRESSION: Unremarkable examination of the left foot. Electronically signed by: Kamron Burt MD 11/19/2024 07:10 AM EDT Dictated By: Kamron Burt MD Signed By: <Electronically signed by Kamron Burt MD in OV> 11/19/24 0710 DD/ 4 TD/TT: 11/18/24945 Programming Manager: Procedure Note Donotuseinterpreter, Image - 11/19/[address] [address] XRay Report Signed Patient: [place] Urias#: [id number] : 1960Acct:[id number] Age/Sex: 64 / MADM Date: 11/18/24 Loc: HO.HHCX Attending Dr: Bridgette Winston MD Ordering Physician: Bridgette Winston MD Date of Service: 11/18/24 Procedure(s): XR foot LT min 3V Accession Number(s): [id number] cc: Bridgette Winston MD Reason for Exam: left heel pain EXAMINATION: XR FOOT 3 OR MORE VIEWS LEFT HISTORY: left heel pain COMPARISON: There are no prior studies available for comparison. FINDINGS: Three views of the left foot are submitted. Osseous mineralization is normal. There is no fracture or dislocation. The joint spaces are preserved. The soft tissues are unremarkable. XR/XR foot LT min 3V IMPRESSION: Unremarkable examination of the left foot. Electronically signed by: Kamron Burt MD 11/19/2024 07:10 AM EDT Dictated By: Kamron Burt MD Signed By: <Electronically signed by Kamron Burt MD in OV> 11/19/24 0710 DD/ TD/TT: 11/18/2446 Programming Manager: Bridgette Winston MD IMG XR PROCEDURES Final Result documented in this encounter Visit Diagnoses Diagnosis Achilles tendinosis of left ankle- Primary Pain of left heel Leg pain, posterior, left documented in this encounter Additional Health Concerns Assessment Noted Time PHQ-9 Depression Total Score: 8 08/29/19 9:15 AM EDT documented as of this encounter Care Teams Metal Framer Relationship Specialty Start Date End Date Love Brady MD [address] [place] [address] PCP - General Family Medicine 06/30/21 documented as of this encounter
--- NOTE | ~2024-11-21 | US_ITS ---
EXAMINATION: US TRIPLEX LOWER EXTREMITY, LEFT CLINICAL INFORMATION: Pain. History of PE. Rule out DVT. COMPARISON: None available. TECHNIQUE: Color-flow triplex imaging with spectral analysis and compression Doppler were performed on the left lower extremity. FINDINGS: Respiratory variation, normal compression and augmented flow are noted throughout the left lower extremity. The visualized common femoral vein, superficial femoral vein, profunda femoral vein, popliteal vein and midcalf peroneal and posterior tibial venous segments show no evidence of deep venous thrombosis. There is no Mo's cyst. US/US venous duplex LE LT IMPRESSION: No evidence of deep venous thrombosis involving the left lower extremity. Electronically signed by: Rich Lopez MD 11/21/2024 04:35 PM EDT
--- OUTSIDE RECORDS SUMMARY | 2024-11-21 19:35 | XMS_ITS | Encounter Summary ---
Author Organization [employer] Address 75 [facility] 7t [place] [address] Care Team Providers Care Cascara Bark Cutter Name Role Phone Love Brady MD Primary Care Provide r Reason for Visit * Reason Comments Med Change Request Encounter Details Date Type Department Care Team ([facility] st Contact Info) Description 05/23/2023 Refill [facility] [address] [place] [address] Jennifer Smart FNP Muscle spasm Social History [...] Description 11/28/2024 9:00 AM EDT Office Visit [facility] [address] [place] [address] Love Brady MD [address] [place] [address] documented as of this encounter Visit Diagnoses Diagnosis Muscle spasm Spasm of muscle documented in this encounter Additional Health Concerns Assessment Noted Time PHQ-9 Depression Total Score: 0 03/01/19 24 3:19 PM EST documented as of this encounter Care Teams Cascara Bark Cutter Relationship Specialty Start Date End Date Love Brady MD [address] [place] [address] PCP - General Family Medicine 06/30/21 documented as of this encounter
--- OUTSIDE RECORDS SUMMARY | 2024-11-21 19:35 | XMS_ITS | Encounter Summary ---
Author Organization [employer] Address 75 [facility] 7t [place] [address] Care Team Providers Care Training Specialist Name Role Phone Love Brady MD Primary Care Provide r Encounter Details Date Type Department Care Team ([facility] st Contact Info) Description 11/20/2024 Results [facility]-Up [facility] [address] [place] [address] Bridgette Winston MD [address] [place] [address] XR Foot 3+ Views Left Social History Tobacco Use Types Packs/Day Years [...] Description 11/28/2024 9:00 AM EDT Office Visit [facility] [address] [place] [address] Love Brady MD [address] [place] [address] documented as of this encounter Visit Diagnoses Not on filedocumented in this encounter Additional Health Concerns Assessment Noted Time PHQ-9 Depression Total Score: 8 08/29/19 25 9:15 AM EDT documented as of this encounter Care Teams Training Specialist Relationship Specialty Start Date End Date Love Brady MD [address] [place] [address] PCP - General Family Medicine 06/30/21 documented as of this encounter
--- OUTSIDE RECORDS SUMMARY | 2024-11-21 19:35 | XMS_ITS | Clinical Summary ---
Author Organization [employer] Address [address] [place] [address] 7t [place] [address] Care Team Providers Care Institution Librarian Name Role Phone Love Brady MD Primary [...] shoe to wear at home, refer to merchandise executive JABARI (obstructive sleep apnea) 08/28/2024 Assessment & [...] 9:35 AM EDT): Patient will be on usp anticoagulation with apixaban BID, prescription renewed today [...] pulmonary embolism wit hout acute cor pulmonale (CMS/HCC) 06/29/2020 Esophageal reflux 10/03/2005 Resolved Problems Problem Noted Date Diagnosed Date Resolved Date Blurred vision 10/05/2023 01/19/2024 Encounters Date Type Department Care Team Description 11/21/2024 Orders Only [facility] [address] [place] [address] Bridgette Winston MD 11/21/2024 Patient Outreach [facility] [address] [place], [place] [phone] Love Brady MD Pre-visit Planning (SDOH was already completed) 11/21/2024 Travel 11/20/2024 Results Follow-Up [facility] [address] [place] [address] Bridgette Winston MD XR Foot 3+ Views Left 11/18/2024 9:00 AM EDT Office Visit [facility] [address] [place] [address] Bridgette Winston MD Achilles tendinosis of left ankle (Primary Dx); Pain of left heel; Leg pain, posterior, left 11/18/2024 Travel 09/23/2024 Refill [facility] [address] [place] [address] Love Brady MD Essential hypertension 09/11/2024 Telephone [facility] [address] [place] [address] Love Brady MD OCT RECALL 08/28/2024 9:15 AM EDT Office Visit [facility] [address] [place] [address] Love Brady MD Coccygeal pain (Primary Dx); Essential hypertension; JABARI (obstructive sleep apnea); Recurrent pulmonary embolism ([facility]/HCC); Encounter for immunization; Dietary counseling; Exercise counseling; Class 1 obesity due to excess calories with serious comorbidity and body mass index (BMI) of 30.0 to 30.9 in adult 08/28/2024 Travel 08/26/2024 Telephone [facility] [address] [place] [address] [phone] Love Brady MD Chart Prep 08/21/2024 Travel [...] Description 11/28/2024 9:00 AM EDT Office Visit [facility] [address] [place] [address] Love Brady MD [address] [place] [address] Health Maintenance Due Date Last Done Comments CT Colonography 1962 FIT DNA/Cologuard 1960 FIT 1960 FOBT 1960 Sigmoidoscopy 1960 Alcohol/Substance Use Screening 1974 RSV Patients and Patients Aged 60 years or older (1 - Risk 60-74 years 1-dose series) 2022 COVID-19 Vaccine ( season) 2024 02/12/2022, 01/03/2021, 05/15/2020 Influenza Vaccine (#1) 2024 , 12/26/2022, 10/25/2021, Additional history exists SDOH Screening 03/26/2025 03/26/2024 Depression Screening 08/28/2025 08/28/2024, 08/29/19 25 Disability Screening 08/28/2025 08/28/2024 Tobacco Screening 11/18/2025 11/18/2024 Lipid Panel 09/02/2027 09/01/2022, 06/30/2021 Colonoscopy 10/29/2028 [...] Procedure Name Priority Date/Time Associated Diagnosis Comments LOWER EXTREMITY VENOUS DUPLEX LEFT Routine 11/21/2024 4:10 PM EDT XR FOOT 3+ VIEWS LEFT Routine 11/18/2024 9:45 AM EDT Pain of left heel Achilles tendinosis of left ankle HM COLONOSCOPY Routine 10/30/2023 5:29 PM EDT LIPID PANEL, STANDARD Routine 09/01/2022 3:37 PM EDT Encounter for preventive health examination ZZZ HISTORICAL HEPATITIS C AB W/REFL TO HCV RNA, QN, PCR Routine 06/30/2021 10:10 AM EDT HIV 1/2 ANTIGEN/ANTIBODY, FOURTH GENERATION W/RFL Routine 06/30/2021 10:10 AM EDT from Last 3 Months or Most Recently Relevant to Health Maintenance Results * Lower Extremity Venous Duplex (11/21/2024 4:10 PM EDT) 11/21/2024 4:10 PM EDT Narrative [facility] - 11/21/2024 4:37 PM EDT [address] [address] Ultrasound Report Signed Patient: Patricio Urias MR#: [id number] : 1960 Acct:[id number] Age/Sex: 64 / M ADM Date: 11/21/24 Loc: HO.US Attending Dr: Bridgette Winston MD Ordering Physician: Bridgette Winston MD Date of Service: 11/21/24 Procedure(s): US venous duplex LE LT Accession Number(s): [id number] cc: Love Brady MD; Bridgette Winston MD Reason for Exam: leg pain posterior left; h/o PE; r/o DVT LE EXAMINATION: US TRIPLEX LOWER EXTREMITY, LEFT CLINICAL INFORMATION: Pain. History of PE. Rule out DVT. COMPARISON: None available. TECHNIQUE: Color-flow triplex imaging with spectral analysis and compression Doppler were performed on the left lower extremity. FINDINGS: Respiratory variation, normal compression and augmented flow are noted throughout the left lower extremity. The visualized common femoral vein, superficial femoral vein, profunda femoral vein, popliteal vein and midcalf peroneal and posterior tibial venous segments show no evidence of deep venous thrombosis. There is no Mo's cyst. US/US venous duplex LE LT IMPRESSION: No evidence of deep venous thrombosis involving the left lower extremity. Electronically signed by: Rich Lopez MD 11/21/2024 04:35 PM EDT Dictated By: Rich Lopez MD Signed By: <Electronically signed by Rich Lopez MD in OV> 11/21/24 1635 DD/ 1610 TD/TT: 11/21/24 1620 [employer]ty Foods Cook: Procedure Note Donotuseinterpreter, Image - 11/21/[address] [address] Ultrasound Report Signed Patient: Patricio UriasMR#: [id number] 359 : 1960Acct:[id number] Age/Sex: 64 / MADM Date: 11/21/24 Loc: HO.US Attending Dr: Bridgette Winston MD Ordering Physician: Bridgette Winston MD Date of Service: 11/21/24 Procedure(s): US venous duplex LE LT Accession Number(s): [id number] cc: Love Brady MD; Bridgette Winston MD Reason for Exam: leg pain posterior left; h/o PE; r/o DVT LE EXAMINATION: US TRIPLEX LOWER EXTREMITY, LEFT CLINICAL INFORMATION: Pain. History of PE. Rule out DVT. COMPARISON: None available. TECHNIQUE: Color-flow triplex imaging with spectral analysis and compression Doppler were performed on the left lower extremity. FINDINGS: Respiratory variation, normal compression and augmented flow are noted throughout the left lower extremity. The visualized common femoral vein, superficial femoral vein, profunda femoral vein, popliteal vein and midcalf peroneal and posterior tibial venous segments show no evidence of deep venous thrombosis. There is no Mo's cyst. US/US venous duplex LE LT IMPRESSION: No evidence of deep venous thrombosis involving the left lower extremity. Electronically signed by: Rich Lopez MD 11/21/2024 04:35 PM EDT Dictated By: Rich Lopez MD Signed By: <Electronically signed by Rich Lopez MD in OV> 11/21/24 1635 DD/ 1610 TD/TT: 11/21/24 1620 [employer]ty [employer] Cook: KRISTEN us Bridgette Winston MD CV VASCULAR PROCEDURES F inal Result [facility] [address] [place] [address] [phone] * XR Foot 3+ Views Left (11/18/2024 9:45 AM EDT) Anatomical Region Laterality Modality Lower Extremities, Foot Left Radiogra phic Imaging 11/18/2024 9:45 AM EDT Narrative 11/19/2024 7:13 AM EDT [address] [address] XRay Report Signed Patient: Patricio Urias MR#: [id number] : 1960 Acct:[id number] Age/Sex: 64 / M ADM Date: 11/18/24 Loc: CX Attending Dr: Bridgette Winston MD Ordering Physician: Bridgette Winston MD Date of Service: 11/18/24 Procedure(s): XR foot LT min 3V Accession Number(s): [id number] cc: Bridgette Winston MD Reason for Exam: [...] Burt MD in OV> 11/19/24 0710 DD/ 0945 TD/TT: 11/18/24 0946 Specialty Foods Cook: Procedure Note Donotuseinterpreter, Image - 11/19/[address] [address] XRay Report Signed Patient: Patricio UriasMR#: [id number] : 1960Acct:[id number] Age/Sex: 64 / MADM Date: 11/18/24 Loc: ANNABELCX Attending Dr: Bridgette Winston MD Ordering Physician: Bridgette Winston MD Date of Service: 11/18/24 Procedure(s): XR foot LT min 3V Accession Number(s): [id number] cc: Bridgette Winston MD Reason for Exam: [...] Kamron Burt MD 11/19/2024 07:10 AM EDT RP Dictated By: Kamron Burt MD Signed By: <Electronically signed by Kamron Burt MD in OV> 11/19/24 0710 DD/ TD/TT: 11/18/24945 Specialty Foods Cook: Bridgette Winston MD IMG XR PROCEDURES Final Result * Hm Colonoscopy (10/30/2023 5:29 PM EDT) Historical Provider HEALTH MAINTENANCE Final Result * Lipid Panel, Standard (09/01/2022 3:37 PM EDT) Triglycerides 190 mg/dL [facility] Comment:Desirable Triglyceri de: less than 150 mg/dLBorderline High Triglyceride 150-199 mg/dLHigh Triglyceride: 200-499 mg/dLVery High Triglyceride: greater than or equal to 5OO mg/dL Cholesterol 200 mg/dL [facility] Comment:Desirable Cholestero l: less than 200 mg/dLBorderline High Cholesterol: 200-239 mg/dLHigh Cholesterol: greater than 239 mg/dL LDL Cholesterol Calculated 118 mg/dl [facility] Comment:Desirable LDL: less than 100 mg/dLNear Optimal/Above Optimal LDL: 110- 129 mg/dLBorderline High LDL: 130-159 mg/dLHigh LDL: 160-189 mg/dLVery High LDL: greater than or equal to 190 mg/dL HDL Cholesterol 44 mg/dL [facility] Comment:Desirable HDL: great er than 40 mg/dL Note: This HDL assay may give artificially low results in patients with liver disease. Blood Venous blood specimen / Unknown 09/01/2022 3:37 PM EDT 09/01/2022 4:05 PM EDT Love Cordero MD LAB BLOOD ORDERABLES Final Result Performing Organization Address [facility] de Phone Number [facility] [address] [place] [address] [phone] * HEPATITIS C AB W/REFL TO HCV RNA, QN, PCR (06/30/2021 10:10 AM EDT) HEPATITIS C ANTIBODY NON-REACT VIC NON-REACT VIC [facility] INDEX <0.02 <1.00 [facility] Comment: HCV antibody was non-reactive. There is no laboratory evidence of HCV infection. In most cases, no further action is required. However, if recent HCV exposure is suspected, a test for HCV RNA (test code 91258) is suggested. For additional information please refer to http://education.[employer] Computing/faq/JUT35c7 (This link is being provided for informational/ educational purposes only.) 06/30/2021 10:1 0 AM EDT us Love Cordero MD HISTORICAL/NON ORDERA BLE LABS Final Result Performing Organization Address [facility] Co de Phone Number [facility] [address] * HIV 1/2 ANTIGEN/ANTIBODY,FOURTH GENERATION W/RFL (06/30/2021 10:10 AM EDT) HIV-1/2 ANTIGEN AND ANTIBODIES, 4TH GENERATION W/ REFLEX NON-REACT VIC NON-REACT VIC [facility] Comment: HIV-1 antigen and HIV-1/HIV-2 [...] purpose. For additional information please refer to http://[employer] Computing/faq/ZXF136 (This link is being provided for informational/ educational purposes only.) The performance of this assay has not been clinically validated in patients less than 2 years old. 06/30/2021 10:1 0 AM EDT Love Cordero MD LAB BLOOD ORDERABLES Final Result Performing Organization Address City/State/[facility] Co [place] Phone Number [facility] [address] from Last 3 Months or Most Recently Relevant to Health Maintenance Insurance [facility] ONE CARE < 65 [place] [id number] Care Teams Institution Librarian Relationship Specialty Start Date End Date Love Brady MD [address] [place] [phone] PCP - General Family Medicine 06/30/21
--- OUTSIDE RECORDS SUMMARY | 2024-11-21 19:35 | XMS_ITS | Clinical Summary ---
Author Organization [employer] [facility] Address [address] [place] [address] Care Team Providers Care Cardroom Plastic Card Grader Name Role Phone Nash Elena PA-C Primary [...] age to complete this topic Care Teams Cardroom Plastic Card Grader Relationship Specialty Start Date End Date Nash Elena, YAMINI PCP - General Medical Services 05/25/20
--- OUTSIDE RECORDS SUMMARY | 2024-11-21 19:35 | XMS_ITS | Encounter Summary ---
Author Organization [employer] Address [address] [facility] 7t [place] [address] Care Team Providers Care Green Building Design Specialist Name Role Phone Love Brady MD Primary Care Provide r Encounter Details Date Type Department Care Team (Latest Contact Info) Description 11/21/2024 Travel Social History Tobacco Use Types Packs/Day [...] 9:00 AM EDT Office Visit [facility] [address] [place] [phone] Love Brady MD [address] [place] [address] documented as of this encounter Visit Diagnoses Not on filedocumented in this encounter Additional Health Concerns Assessment Noted Time PHQ-9 Depression Total Score: 8 08/29/19 25 9:15 AM EDT documented as of this encounter Care Teams Green Building Design Specialist Relationship Specialty Start Date End Date Love Brady MD [address] [place] [phone] PCP - General Family Medicine 06/30/21 documented as of this encounter
--- OUTSIDE RECORDS SUMMARY | 2024-11-21 19:35 | XMS_ITS | Encounter Summary ---
Author Organization [employer] Address [address] [place] [address] 7 [place] [address] Care Team Providers Care Second Steward Name Role Phone Love Brady MD Primary Care Provide r Reason for Visit * Reason Comments Med Refill Encounter Details Date Type Department Care Team ([facility] st Contact Info) Description 07/08/2024 Refill [facility] [address] [place], [place] [phone] Love Brady MD [address] [place] [address] Essential hypertension Social History Tobacco Use Types [...] Description 11/28/2024 9:00 AM EDT Office Visit [facility] [address] [place], [place] [phone] Love Brady MD [address] [place] [address] documented as of this encounter Visit Diagnoses Diagnosis Essential hypertension Unspecified essential hypertension documented in this encounter Additional Health Concerns Assessment Noted Time PHQ-9 Depression Total Score: 2 10/05/19 24 3:40 PM EDT documented as of this encounter Care Teams Second Steward Relationship Specialty Start Date End Date Love Brady MD [address] [place], [place] [phone] PCP - General Family Medicine 06/30/21 documented as of this encounter
--- OUTSIDE RECORDS SUMMARY | 2024-11-21 19:35 | XMS_ITS | Encounter Summary ---
Author Organization [employer] Address 75 [facility] 7t [place] [address] Care Team Providers Care Systems Software Designer Name Role Phone Love Brady MD Primary Care Provide r Encounter Details Date Type Department Care Team (Late st Contact Info) Description 06/09/2023 Orders Only [facility] [address] [place], [place] [phone] Love Brady MD [address] [place] [address] Social History Tobacco Use Types Packs/Day Years [...] Description 11/28/2024 9:00 AM EDT Office Visit [facility] [address] [place] [address] Love Brady MD [address] [place] [address] documented as of this encounter Visit Diagnoses Not on filedocumented in this encounter Additional Health Concerns Assessment Noted Time PHQ-9 Depression Total Score: 0 03/01/19 24 3:19 PM EST documented as of this encounter Care Teams Systems Software Designer Relationship Specialty Start Date End Date Love Brady MD [address] [place] [phone] PCP - General Family Medicine 06/30/21 documented as of this encounter
--- OUTSIDE RECORDS SUMMARY | 2024-11-21 19:35 | XMS_ITS | Clinical Summary ---
Author Organization [facility] Address [address] [place] [address] Phone Care Team Providers Care String Laster Name Role Phone Love Brady MD Primary [...] SURGERY; COMMENT: Dr. boateng COLONOSCOPY 2014 PROCEDURE: SD COLONOSCOPY STOMA W/RMVL IZAIAH POLYP/OTH LES SNARE; COMMENT: Colon polyps x 3 , diverticulosis COLONOSCOPY 10/31/2017 PROCEDURE: SD COLONOSCOPY STOMA W/RMVL IZAIAH POLYP/OTH LES SNARE; [...] N (hypertension), benign DVT (deep venous thrombosis) ([facility] V24, [facility] V28) Family History Medical History Relation Name [...] mmol/L LAB CHEMISTRY METHOD 03/12/2024 7:58 AM [facility] Potassium 3.6 3.5 - 5.5 mmol/L LAB CHEMISTRY METHOD 03/12/2024 7:58 AM [facility] Chloride 104 96 - 110 mmol/L LAB CHEMISTRY METHOD 03/12/2024 7:58 AM [facility] CO2 27 21 - 32 mmol/L LAB CHEMISTRY METHOD 03/12/2024 7:58 AM [facility] Anion Gap 8 3 - 11 LAB CHEMISTRY METHOD 03/12/2024 7:58 AM [facility] Glucose 100 70 - 100 mg/dL LAB CHEMISTRY METHOD 03/12/2024 7:58 AM [facility] BUN 18 5 - 25 mg/dL LAB CHEMISTRY METHOD 03/12/2024 7:58 AM [facility] Creatinine 0.88 0.70 - 1.30 mg/dL LAB CHEMISTRY METHOD 03/12/2024 7:58 AM [facility] eGFR 98 >=60 mL/min/1. 73m2 LAB CHEMISTRY METHOD 03/12/2024 7:58 AM [facility] Comment:Calculation based on the Chronic Kidney Disease Epidemiology Collaboration (CKD-EPI) equation refit without adjustment for race. BUN/Creatinine Ratio 20.5 LAB CHEMISTRY METHOD 03/12/2024 7:58 AM [facility] Calcium 9.2 8.5 - 10.5 mg/dL LAB CHEMISTRY METHOD 03/12/2024 7:58 AM [facility] Blood Venous blood specimen / Unknown Venipuncture / Unknown 03/12/2024 7:23 AM EST 03/12/2024 7:29 AM EST Hero Villavicencio DO LAB BLOOD ORDERABLES Final Result [facility] [address] [place] [address], [place] [phone] from Last 3 Months or Most Recently Relevant to Health Maintenance Insurance [facility] Member Subscriber Plan / Payer (Ef fective 2024-Present) Name:Patricio Urias Relation to Subscriber:Self Name:Patricio Urias Payer ID:[id number] Group ID:[id number] Type:Not on file Address: [address] [place] [phone] [employer] MEDICARE Member Subscriber Plan / Payer (Ef fective 2024-Present) Name:Patricio Urias Relation to Subscriber:Self Name:Patricio Urias Payer ID:[id number] Group ID:Not on file Type:Not on file Address: [address] [place] [phone] Advance Directives Documents on File Type Date Recorded Patient Ore Fielder Expl anation Health Care Decision (hx) 05/23/2020 [...] (hx) 02/18/2015 AD SALAS DIRECTIVE Care Teams String Laster Relationship Specialty Start Date End Date Love Brady MD [address] [place] [phone] PCP - General 08/31/22
--- OUTSIDE RECORDS SUMMARY | 2024-11-21 19:35 | XMS_ITS | Encounter Summary ---
Author Organization [employer] Address [address] [place] [address] Care Team Providers Care Trailhead Maintenance Worker Name Role Phone Love Brady MD Primary Care Provide r Reason for Visit * Reason Comments Med Refill Encounter Details Date Type Department Care Team (Late Contact Info) Description 10/20/2022 Refill [facility] [address] [place], [place] [phone] Gabrielle Farias FNP [address] [place] [address] Muscle spasm Social History Tobacco Use Types [...] 9:00 AM EDT Office Visit [facility] [address] [place], [place] [phone] Love Brady MD [address] [place], [place] [phone] documented as of this encounter Visit Diagnoses Diagnosis Muscle spasm Spasm of muscle documented in this encounter Additional Health Concerns Assessment Noted Time PHQ-9 Depression Total Score: 3 02/11/19 23 9:07 AM EST documented as of this encounter Care Teams Trailhead Maintenance Worker Relationship Specialty Start Date End Date Love Brady MD [address] [place] [address] PCP - General Family Medicine 06/30/21 documented as of this encounter
--- OUTSIDE RECORDS SUMMARY | 2024-11-21 19:35 | XMS_ITS | Encounter Summary ---
Author Organization [employer] Address [address] [place] [address] [address] [address] Care Team Providers Care Pot Fireman Name Role Phone Love Brady MD Primary Care Provide r Reason for Visit * Reason Comments Med Refill Encounter Details Date Type Department Care Team (Late Contact Info) Description 09/14/2022 Refill [facility] MEDICINE [address] [place] [address] [phone] Bridgette Winston MD [address] [place], [place] [phone] Essential hypertension Social History Tobacco Use Types [...] 9:00 AM EDT Office Visit [facility] [address] [place], [place] [phone] Love Brady MD [address] [place], [place] [phone] documented as of this encounter Visit Diagnoses Diagnosis Essential hypertension Unspecified essential hypertension documented in this encounter Additional Health Concerns Assessment Noted Time PHQ-9 Depression Total Score: 3 02/11/19 23 9:07 AM EST documented as of this encounter Care Teams Pot Fireman Relationship Specialty Start Date End Date Love Brady MD [address] [place] [address] PCP - General Family Medicine 06/30/21 documented as of this encounter
--- OUTSIDE RECORDS SUMMARY | 2024-11-21 19:35 | XMS_ITS | Encounter Summary ---
Author Organization [employer] Address [address] [facility] 7t [place] [address] Care Team Providers Care Brim Welt Sewing Machine Operator Name Role Phone Love Brady [...] Description 11/28/2024 9:00 AM EDT Office Visit [facility] MED[facility]INE [address] [place] [phone] Love Brady MD [address] [place] [phone] documented as of this encounter Visit Diagnoses Not on filedocumented in this encounter Additional Health Concerns Assessment Noted Time PHQ-9 Depression Total Score: 8 08/29/19 25 9:15 AM EDT documented as of this encounter Care Teams Brim Welt Sewing Machine Operator Relationship Specialty Start Date End Date Love Brady MD [address] [place] [phone] PCP - General Family Medicine 06/30/21 documented as of this encounter
--- OUTSIDE RECORDS SUMMARY | 2024-11-21 19:35 | XMS_ITS | Encounter Summary ---
Author Organization [employer] Address [address] [place] [address] 7 [place] [address] Care Team Providers Care Box Toe Cutter Name Role Phone Love Brady MD Primary Care Provide r Reason for Visit * Reason Comments Pre-visit Planning SDOH was already com pleted Encounter Details Date Type Department Care Team ([facility] st Contact Info) Description 11/21/2024 Patient Outreach [facility] [address] [place] [address] Love Brady MD [address] [place] [address] Pre-visit Planning (SDOH was already completed) Social History Tobacco Use Types Packs/Day Years [...] the past 12 months, has t he [employer], gas, oil or water company threatened to [...] AM EDT documented as of this encounter Progress Notes * Christi Gupta - 11/21/2024 1:55 PM EDT CC Christi Sanz placed successful outbound call to patient for pre-visit planning. Patient name and confirmed. Patient confirms appt date and time, and has transportation arrangements. Biggest concern for appointment at this time is no concerns. Appropriate screenings completed in anticipation ofappointment. documented in this encounter Plan of Treatment Upcoming Encounters Date Type Department Care Team (Late st Contact Info) Description 11/28/2024 9:00 AM EDT Office Visit [facility] [address] [place] [address] Love Brady MD [address] [place] [address] documented as of this encounter Visit Diagnoses Not on filedocumented in this encounter Additional Health Concerns Assessment Noted Time PHQ-9 Depression Total Score: 8 08/29/19 25 9:15 AM EDT documented as of this encounter Care Teams Box Toe Cutter Relationship Specialty Start Date End Date Love Brady MD [address] [place] [address] PCP - General Family Medicine 06/30/21 documented as of this encounter
--- OUTSIDE RECORDS SUMMARY | 2024-11-21 19:35 | XMS_ITS | Encounter Summary ---
Author Organization [employer] Address [address] [facility] 7 [place] [address] Care Team Providers Care Tool Design Engineer Name Role Phone Love Brady MD Primary Care Provide r Encounter Details Date Type Department Care Team ([facility] st Contact Info) Description 11/21/2024 Orders Only [facility] MEDICINE [address] [place], [place] [phone] Bridgette Winston MD [address] [place], [place] [phone] Social History Tobacco Use Types Packs/Day Years [...] Description 11/28/2024 9:00 AM EDT Office Visit [facility] MEDICINE [address] [place] [address] Love Brady MD [address] [place] [address] documented as of this encounter Procedures Procedure Name Priority Date/Time Associated Diagnosis Comments LOWER EXTREMITY VENOUS DUPLEX LEFT Routine 11/21/2024 4:10 PM EDT documented in this encounter Results * Lower Extremity Venous Duplex (11/21/2024 4:10 PM EDT) 11/21/2024 4:10 PM EDT Narrative [facility] - 11/21/2024 4:37 PM EDT [facility] [address] [place] [phone] Ultrasound Report Signed Patient: Patricio Urias MR#: [id number] : 1960 Acct:[id number] Age/Sex: 64 / M ADM Date: 11/21/24 Loc: .US Attending Dr: Bridgette Winston MD Ordering Physician: Bridgette Winston MD Date of Service: 11/21/24 Procedure(s): US venous duplex LE LT Accession Number(s): [id number] cc: Love Brady MD; Bridgette Winston MD [...] 11/21/24 1635 DD/ 1610 TD/TT: 11/21/24 1620 Washroom Cleaner: Procedure Note Donotuseinterpreter, Image - 11/21/[address] [address] Ultrasound Report Signed Patient: Patricio UriasMR#: [id number] : 1960Acct:[id number] Age/Sex: 64 / MADM Date: 11/21/24 Loc: .US Attending Dr: Bridgette Winston MD Ordering Physician: Bridgette Winston MD Date of Service: 11/21/24 Procedure(s): US venous duplex LE LT Accession Number(s): [id number] cc: Love Brady MD; Bridgette Winston MD [...] Rich Lopez MD 11/21/2024 04:35 PM EDT RP Dictated By: Rich Lopez MD Signed By: <Electronically signed by Rich Lopez MD in OV> 11/21/24 1635 DD/ 1610 TD/TT: 11/21/24 1620 Washroom Cleaner: HB Bridgette Winston MD CV VASCULAR PROCEDURES F inal Result [facility] [address] [place] [address] documented in this encounter Visit Diagnoses Not on filedocumented in this encounter Additional Health Concerns Assessment Noted Time PHQ-9 Depression Total Score: 8 08/29/19 25 9:15 AM EDT documented as of this encounter Care Teams Tool Design Engineer Relationship Specialty Start Date End Date Love Brady MD [address] [place] [address] PCP - General Family Medicine 06/30/21 documented as of this encounter
--- OUTSIDE RECORDS SUMMARY | 2024-11-21 19:35 | XMS_ITS | Encounter Summary ---
Author Organization [employer] Address [address] [address] [place] [address] Care Team Providers Care Stationary Plant Operators Name Role Phone Love Brady MD Primary Care Provide r Encounter Details Date Type Department Care Team (Late st Contact Info) Description 06/06/2024 Orders Only [facility] [address] [place] [address] Provider, MD Doreen Social History Tobacco Use [...] 11/28/2024 9:00 AM EDT Office Visit [facility] [address] [place] [address] Love Brady MD [address] [place] [address] documented as of this encounter Procedures Procedure [...] documented as of this encounter Care Teams Stationary Plant Operators Relationship Specialty Start Date End Date Love Brady MD [address] [place] [phone] PCP - General Family Medicine 06/30/21 documented as of this encounter
== END 2024-11-21 15:57 | disposition home or self-care (01) ==
LOC: HO.US 15:56
PROVIDERS: PCP Internal Medicine; Visit Provider Internal Medicine
DX: M79.605 Pain in left leg (principal)
CPT/HCPCS: 93971

== ENCOUNTER → 2024-11-21 16:10 | Outpatient (BNV) | payer OTHER, MEDICAID, SELFPAY | PROVIDERS: PCP Internal Medicine; Visit Provider Radiology Diagnostic Ultrasound | DX: M79.662 Pain in left lower leg (principal) | CPT/HCPCS: 93971 ==